=== PATIENT | female | born 1955 | race Caucasian/White ===

== ENCOUNTER → 2024-02-25 08:58 | Outpatient (BNVA) | payer SELFPAY | PROVIDERS: Visit Provider Physician Assistant Medical ==

== ENCOUNTER 2024-02-25 09:56 | Emergency (ER) | payer OTHER, SELFPAY ==
--- NOTE | ~2024-02-25 | XR_ITS ---
EXAMINATION: XR FINGER, LEFT CLINICAL INFORMATION: Crush injury. COMPARISON: None available. TECHNIQUE: 3 views of the left second digit. FINDINGS: Radiopaque marker placed by technologist to indicate the area of concern as indicated by the patient along the distal aspect of the second digit. There is a comminuted, displaced fracture of the distal aspect of the second distal phalanx with adjacent soft tissue swelling. Curvilinear radiodensity in the soft tissues along the ventral aspect of the middle phalanx is concerning for possible foreign body. Moderate degenerative changes in the first carpometacarpal joint. XR/XR finger LT min 2V IMPRESSION: 1. A comminuted, displaced fracture of the distal aspect of the second distal phalanx with adjacent soft tissue swelling. 2. Curvilinear radiodensity in the soft tissues along the ventral aspect of the middle phalanx is concerning for possible foreign body. This study was presented today, February 25, 2024, for interpretation. Stat results provided at this time as requested by referring provider. Electronically signed by: Poornima Jacques MD 02/25/2024 11:56 AM [facility]
[2024-02-25 10:02] VITALS: BP 150/73; PULSE 99; RESP 16; TEMP 36.8; O2SAT 100; BMI 21.1
--- NOTE | 2024-02-25 11:07 | ED_ITS ---
HPI - General Adult General Chief complaint: Wound/Laceration Stated complaint: laceration work related Time Seen by Provider: 02/25/24 10:21 Source: patient Mode of arrival: ambulatory Limitations: no limitations History of Present Illness ED Provider: Jose Rafael Carroll PA-C HPI narrative: 68 yold female with pmh of HTN presents to the ED left index finger injury. 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 Patient states this occurred around 930 this morning and was sent to [facility] who sent her to the ED. patient states up-to-date with tetanus shot. Related Data Previous Rx's ?Medication ?Instructions ?Recorded amoxicillin 875 mg-potassium 1 tab PO Q12H 10 days #20 tabs 02/25/24 clavulanate 125 mg tablet naproxen 500 mg tablet 500 mg PO BID PRN pain #14 tabs 02/25/24 Allergies Allergy/AdvReac Type Severity Reaction Status Date / Time acetaminophen [From Percocet] AdvReac Itching Verified 02/25/24 10:04 hydrochlorothiazide AdvReac Insomnia Verified 02/25/24 10:04 oxycodone [From Percocet] AdvReac Itching Verified 02/25/24 10:04 Review of Systems 2 Review of Systems: left index injury Yes all other systems are reviewed and are negative [facility] Social History Social History Advance Directives: No Advance Directives Information Provided: Yes Do you have a plan to hurt others: No Plan Physical Exam ED Vital Signs: Vital Signs - 24 hr 02/25/24 10:02 02/25/24 13:13 Temperature 98.3 F 98.2 F Pulse Rate 99 91 Respiratory Rate 16 18 Blood Pressure 150/73 H 150/76 H Pulse Oximetry 100 99 Oxygen Delivery Method Room Air Room Air BMI result Body Mass Index 21.1 Const General: cooperative, healthy appearing, comfortable, no acute distress, well developed, alert, awake and Physically active Orientation/consciousness: patient oriented x3 HENMT Head: Yes normal to inspection, Yes No palpable skull fracture present, Yes normocephalic and Yes atraumatic Eyes General: appearance normal, both eyes and all related structures Neck Neck: Yes normal visual inspection, Yes full ROM, Yes no lymphadenopathy, Yes no meningeal signs, Yes trachea midline, Yes supple, No anterior neck swelling and No tender Chest Chest palpation & inspection: normal inspection of the chest and normal palpation of entire chest wall Resp Effort & Inspection: normal respiratory effort and able to speak in complete sentences Auscultation: clear to auscultation bilaterally Cardio Jugular venous distension: no JVD Heart sounds: S1 normal heart sound present and S2 normal heart sound present GI Inspection: Yes normal to inspection Palpation (GI): Soft to palpation, not firm, nontender, no guarding and not rigid General: Yes no CVA tenderness Back/Spine/Pelvis Back: no CVA tenderness and No back tenderness Skin General skin exam: no rashes or lesions noted, elasticity normal and turgor normal Neuro General: patient oriented x3, gait normal, tone normal, moves all extremities, Normal light touch and pain sensation, no meningeal signs, no focal motor deficits, CN's II-XI intact bilaterally and normal sensation to monofilament Extrem Other: Negative for signs of tendon nerve injury. Nail attached to nail bed. Palm aspect skin avulsion. Bleeding controlled. Vascular motor neuro exam of finger and rest of extremity intact. Negative for signs of foreign body in middle phalanx. Psych Appearance: grossly normal, well kempt and not disheveled Medications Administered Discontinued Medications Generic Name Dose Route Start Last Admin Trade Name Malaika PRN Reason Stop Dose Admin Bacitracin 1 appl 02/25/24 12:31 02/25/24 12:43 Bacitracin Oint 0.9 Gm Packet TOPICAL 02/25/24 12:32 1 appl ONCE ONE Administration Protocol Cefazolin Sodium 1 gm 02/25/24 12:23 02/25/24 12:43 Cefazolin Sodium 1 Gm Vial IVPUSH 02/25/24 12:24 1 gm ONCE ONE Administration Medical Decision Making Medical Decision Making MDM Narrative: 68-year-old female with left index injury/crush injury up-to-date with tetanus. Was sent for x-ray. Patient denied any distress. X-ray shows crushed cuff injury on wet read waiting for official read. Finger on wrap cleaned with sterile saline and Betadine iodine. 12:23pm: Xray confirmes communited fracture of finger. pictures of finger and xray was sent orthopedic PA surgeon Joy. Case was discussed with her and she recommends IV antibiotics and just clean crush injury and place in dressing and patient can follow-up with the clinic. Nail attached to nail bed. Palm aspect of finger shows skin avulsion. Presently no laceration repair indicated. Motor neurovascular exam of index finger rest of extremity intact and normal. Patient explained worrisome signs and informed to return to the ED immediately. Differential Diagnosis Differential Diagnoses: The differential diagnosis associated with the presentation includes (Crush injury, fracture, laceration) Admission/Observation Consideration of admission/observation: Escalation of care including admission/observation considered Consult Healthcare Provider Management of the patient was discussed with: Tin Dipper (Orhotpanastacia Siu) Lab Data MDM Lab Attestation statement: I reviewed the patient's lab results. Independent Interpretation I performed an independent interpretation of an: Plain X-Ray Radiology Impression Discussion of test interpretation with radiology: I have reviewed the radiologist's reading. Discharge Plan Discharge Clinical Impression: Crush injury, Avulsion of skin, Finger fracture, left Patient Disposition: Home, Self-Care Instructions: Finger Fracture (ED) Additional Instructions: Dressing and splint should remain on finger until you follow up with Orthopedic Hand Surgeon. You will be discharged with antibiotics to prevent infection. Return to the ED immeidatley for worsening pain, numbness/tingling, redness, fever, chills, bluish/black discloration, or any other concerning symptoms. XR/XR finger LT min 2V IMPRESSION: 1. A comminuted, displaced fracture of the distal aspect of the second distal phalanx with adjacent soft tissue swelling. 2. Curvilinear radiodensity in the soft tissues along the ventral aspect of the middle phalanx is concerning for possible foreign body. This study was presented today, February 25, 2024, for interpretation. Stat results provided at this time as requested by referring provider. Electronically signed by: Poornima Jacques MD 02/25/2024 11:56 AM [facility] Prescriptions: New amoxicillin-pot clavulanate 875-125 mg tablet 1 tab PO Q12H 10 Days Qty: 20 0RF naproxen 500 mg tablet 500 mg PO BID PRN (Reason: pain) Qty: 14 0RF Referrals: [facility] Orth[facility] Surgeons [Provider Group] (Index finger communited fracture.) [facility] [Outside] (Index finger injury) Deloris Wilson MD [Physician] - (Index fracture communited) Stand Alone Forms: Work/School Release Interventions: ED Discharge Assessment Last Done: 02/25/24 13:13 Discharge Date/Time: 02/25/24 13:14 Print Language: Welsh
[2024-02-25] MEDS: Bacitracin Oint 0.9 GM PACKET 1 APPL TOPICAL (12:43)
[2024-02-25] MEDS: ceFAZolin Sodium 1 GM VIAL IVPUSH (12:43)
[2024-02-25 13:13] VITALS: BP 150/76; PULSE 91; RESP 18; TEMP 36.8; O2SAT 99
== END 2024-02-25 13:14 | disposition home or self-care (01) ==
PROVIDERS: Emergency Provider Emergency Medicine; PCP Family Medicine
DX: S62.601A Fracture of unspecified phalanx of left index finger, initial encounter for closed fracture (principal); Y29.XXXA Contact with blunt object, undetermined intent, initial encounter; Y93.89 Activity, other specified; Y92.89 Other specified places as the place of occurrence of the external cause; Y99.0 Civilian activity done for income or pay
CPT/HCPCS: 29130; 73140; 96374; 99282; 99284; J0690

== ENCOUNTER 2024-02-26 13:03 | Outpatient (AMB) | payer OTHER, SELFPAY ==
--- NOTE | 2024-02-26 13:08 | A.OFFVIS_ITS ---
Vital Signs 02/26/24 13:15 Height 5 ft 7 in Weight 135 lb BMI 21.1 Intake Visit Reasons: FC - ED f/u Crush injury, Lt index Finger fx Intake Note: Ansley 68 yr old right hand dominant female presents today for a new patient W/C visit s/p ED visit from DOI 02/25/24 for her left index finger. 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 States while working she accidentally kicked the kick presser and her finger got crushed. Seen at [facility] and then ED. Xrays were taken and finger were cleaned and wrapped due to laceration in finger. Currently states she is experiencing a constant ache in finger, bleeding and numbness is improving. Allergies acetaminophen [From Percocet] Adverse Reaction (Verified 02/26/24 13:21) Itching hydrochlorothiazide Adverse Reaction (Verified 02/26/24 13:21) Insomnia oxycodone [From Percocet] Adverse Reaction (Verified 02/26/24 13:21) Itching HPI HPI FC - ED f/u Crush injury, Lt index Finger fx: Details: Ansley is a 68 year old right hand dominant woman who presents for a left index finger fracture, S/P crush injury, DOI: 02/25/24. 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 She was seen in the ED where this was cleaned and dressed, and she was given Abx and referred here. She complains today of a constant achiness in her finger. She says the bleeding & numbness in her finger has been improving. 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 Review of Systems Const All systems reviewed & are unremarkable except as noted in HPI and below Physical Exam Vital Signs: BMI result Body Mass Index 21.1 Const General: cooperative, healthy appearing and no acute distress Orientation/consciousness: patient oriented x3 HEENT Head: Yes normocephalic and Yes atraumatic Eyes EOM: EOMs intact bilaterally Resp Effort & Inspection: normal respiratory effort and able to speak in complete sentences Cardio Jugular venous distension: no JVD Skin General skin exam: turgor normal Rashes: no rashes Neuro General: patient oriented x3 Extrem Other: Evaluation of Left Upper Extremity: The patient is alert, oriented, and in no acute distress Sensation intact to the pad of the finger proximal to the laceration. The index finger nail plate is displaced from under eponychial fold proximally, and is still attached distally There is an apex dorsal deformity of the distal phalanx. There is some ecchymosis and a hematoma around the distal aspect of the finger She does have an open wound covered by hematoma at the tip of the finger. Full active flexion and extension at the index finger MCP joint. No wounds over the middle phalanx I did not test the PIP joint. The other digits do not appear to be injured. No laceration or other open injury over the middle phalanx. Thus the radiographic foreign body at the radial volar middle phalanx appears to be old. Radiographs: 3 views of the left hand, with attention to the index finger, were reviewed by me today in clinic. They show a comminuted displaced distal phalanx fracture. There is also evidence of a foreign body over the middle phalanx, which appears to be old as she has no evidence of wounds on exam today. Psych Appearance: grossly normal Affect: normal affect Attitude: cooperative Assessment & Plan Assessment & Plan (1) Open fracture of distal phalanx of left index finger: Code(s): S62.631B - Displaced fracture of distal phalanx of left index finger, initial encounter for open fracture Category: Medical (2) Injury of nail bed of finger of left hand: Comment: IF Code(s): S69.92XA - Unspecified injury of left wrist, hand and finger(s), initial encounter Category: Medical Plan Assessment & Plan: 1. Left index finger open distal phalanx fracture, comminuted, displaced 2. Left index finger nail bed injury From a crush injury, DOI: 02/25/24 This is a work-related injury I educated her about this condition I discussed operative and non-operative treatment options The patient would like to proceed with surgery She should continue to take her Abx as instructed The risks and benefits of operative treatment were discussed with the patient and the patient wishes to proceed with surgery. These risks include, but are not limited to risk of damage to blood vessels, nerves, tendons, infection, recurrence, incomplete relief of preoperative symptoms, persistent pain, possible need for further surgery and the risks associated with regional blocks and anesthesia. The plan is to take the patient to the operating room sometime on 02/28/24 for the following procedures: 1. Left index finger I&D of open fracture, under local 2. Left index finger nailbed repair, under local All of the preoperative paperwork including the consent was reviewed today. All the patient's questions were answered. The patient understands that they will be contacted by our dental surgery doctor soon to schedule this procedure She denies Diabetes, blood thinners, asthma, heart, lung, kidney issues Scribed for Deloris Wilson MD by Malcolm Zambrano, certified medical transcriptionist, on 02/26/24 at 1:40 PM, EST. Medications: Discontinued naproxen Discontinued Reason: Patient Completed Course 500 mg PO BID PRN 14 tabs 0RF pain Coding Level of Care Code New Pt Level 4 (82093) Diagnoses Open fracture of distal phalanx of left index finger S62.631B Injury of nail bed of finger of left hand S69.92XA
[2024-02-26 13:15] VITALS: BMI 21.1
== END 2024-02-26 13:52 | disposition home or self-care (01) ==
PROVIDERS: PCP Family Medicine; Visit Provider Orthopaedic Surgery
DX: S62.631B Displaced fracture of distal phalanx of left index finger, initial encounter for open fracture (principal); S69.92XA Unspecified injury of left wrist, hand and finger(s), initial encounter
CPT/HCPCS: 99204

== ENCOUNTER 2024-02-28 10:14 | Day surgery (SDC) | payer OTHER, SELFPAY ==
--- NOTE | 2024-02-28 09:44 | W.PM.OPN ---
Operative Note Operative Note Date of Service: 02/28/24 Narrative: Operative Note Narrative: Preop diagnosis: 1. Left index finger open distal phalanx fracture 2. Left index finger nail bed injury Postop diagnosis: Same Procedure: 1. Left index finger I&D of open fracture 2. Left index finger removal of nail plate 3. Left index finger repair of nail bed Surgeon: Deloris Wilson MD Electrical Repairer: Erick BASHIR Anesthesia: Digital block Findings: Open comminuted distal phalanx fracture from a crush injury. Injury to the nail bed in the central aspect of the nail bed, also on the radial aspect of the nail bed. Both of these wounds were open to the fracture. There was some skin loss on the radial tip of the finger, and this also communicated with the fracture. Overall the wound was clean other than for hematoma and dried blood. The skin distal to the D IP flexion crease was somewhat dusky, but this could be more secondary to hematoma than vascular compromise of the skin in this area. Implants: None Tourniquet time: 0 minutes EBL: 5.0 ml Specimen: None Drains: None Complications: None Disposition: Brought to the recovery room in stable condition Plan: Follow-up next week for wound check Anticipate suture removal in 3 weeks for those securing the nail. Continue antibiotics until finished Indications: The patient is 68 years old with a crush injury to the tip of the left index finger resulting in a nail bed injury and open distal phalanx fracture with comminution . The risks and benefits of operative treatment, including but not limited to risk of damage to blood vessels, nerves, tendons, infection, recurrence, persistent pain or numbness, incomplete resolution of preoperative symptoms, or need for further surgery were discussed with the patient and they wished to proceed with surgery. Procedure: Once consent was obtained a digital block was performed in preop hold. The patient was brought back to the operating suite and placed in the operating table in a supine position. The limb was prepped and draped in a standard surgical fashion. Once assured we had a good block I used a [place] elevator to elevate the nail plate from the underlying nail bed. The nail plate was then cleaned off with a [place] elevator and placed in some Betadine. A finger tourniquet was applied to the base of the index finger for fewer than 30 minutes. The patient sustained a nail bed injury in the central aspect of the nail bed and then along the radial edge of the nail bed. Both of these wounds communicated with the open fracture. The skin also appeared to rupture and or sustain skin loss from the radial tip of the finger. This wound also communicated with the open fracture. The wounds were debrided of nonviable tissue using tenotomy and iris scissors. An I&D was also performed on the open distal phalanx fracture. A curette was also used to debride some of the bone within each of these wounds. I used a 10 mL syringe with an Angiocath to copiously irrigate the fracture fragments at the tip of the distal phalanx. Once satisfied with our I&D of this open fracture the distal phalanx fracture was reduced from its volarly translated position. The skin edges were reapproximated with some 4 0 Prolene suture material. The nail bed wasrepaired using some 6 0 gut suture. I then placed the proximal end of the nail plate beneath the eponychial fold so that the nail plate could act as a splint for this distal phalanx fracture. The nail plate was then secured in place using some 4-0 Prolene suture. This also help to hold the fracture in in improved position. At this point the finger tourniquet was removed and hemostasis obtained with a brief period of local pressure. A sterile dressing was then applied. The patient appears to have tolerated the procedure well and with no complications. All digits were well vascularized conclusion of the case.
[2024-02-28 10:06] VITALS: BMI 21.6
[2024-02-28 10:17] VITALS: BP 134/82; PULSE 86; RESP 20; TEMP 36.1; O2SAT 98
--- NOTE | 2024-02-28 11:13 | MHC.SHP ---
Pre-Procedural Eval Section A - 24 Hr Update-Section A only Date of Service: 02/28/24 The patient is an INPATIENT: No Changes since office visit: No Cold of Flu in the past 2 weeks, No New Medical Problems, No Changes in Medication and No Patient answered all questions The patient has been examined within 24 hours of the surgical procedure. The History & Physical has been completed within 30 days and I have reviewed it.: Yes Section B - Complete if H&P > 30 days Chief Complaint: Displaced fracture of distal phalanx of left index Allergies: Allergies Allergy/AdvReac Type Severity Reaction Status Date / Time acetaminophen [From Percocet] AdvReac Itching Verified 02/26/24 13:21 hydrochlorothiazide AdvReac Insomnia Verified 02/26/24 13:21 oxycodone [From Percocet] AdvReac Itching Verified 02/26/24 13:21 Plan I have reviewed the history and physical and performed a pertinent physical examination on my patient. No changes have occurred unless specified. Time Spent With Patient Time: Total time managing care of this patient today ____ minutes.
[2024-02-28 13:07] VITALS: BP 135/65; PULSE 71; RESP 18
== END 2024-02-28 13:25 | disposition home or self-care (01) ==
PROVIDERS: PCP Family Medicine; Visit Provider Orthopaedic Surgery
PROC: (CPT 11012; principal; 2024-02-28 11:00)
DX: S62.631B Displaced fracture of distal phalanx of left index finger, initial encounter for open fracture (principal); S69.82XA Other specified injuries of left wrist, hand and finger(s), initial encounter; W31.9XXA Contact with unspecified machinery, initial encounter; Y93.89 Activity, other specified; Y92.63 Factory as the place of occurrence of the external cause; Y99.0 Civilian activity done for income or pay; Z88.8 Allergy status to other drugs, medicaments and biological substances; Z88.5 Allergy status to narcotic agent
CPT/HCPCS: 11012; 11760; 11730; J0171; J2003

== ENCOUNTER → 2024-02-28 10:14 | Outpatient (BNV) | payer OTHER, SELFPAY | PROVIDERS: PCP Family Medicine; Visit Provider Orthopaedic Surgery | DX: S67.191A Crushing injury of left index finger, initial encounter (principal) | CPT/HCPCS: 11012; 11760 ==

== ENCOUNTER 2024-03-07 10:09 | Outpatient (AMB) | payer OTHER, SELFPAY ==
--- NOTE | 2024-03-07 10:22 | A.OFFVIS_ITS ---
Intake Visit Reasons: PO 1 week LT IF I&D/nail bed repair 02/28/24 AR Intake Note: Ansley is a 68 year old right hand dominant female who presents today post operatively and for a wound check s/p left index finger I&D of open fracture, left index finger removal of nail plate and left index finger repair of nail bed DOS: 02/28/24 w/ Dr Wilson Allergies acetaminophen [From Percocet] Adverse Reaction (Verified 03/07/24 10:30) Itching hydrochlorothiazide Adverse Reaction (Verified 03/07/24 10:30) Insomnia oxycodone [From Percocet] Adverse Reaction (Verified 03/07/24 10:30) Itching HPI HPI PO 1 week LT IF I&D/nail bed repair 02/28/24 AR: Details: Patient is a 68-year-old female who presents for postoperative evaluation status post left index finger I&D and nail bed repair, DOS 02/1924. Today, the patient reports that she does still experience some numbness in the distal aspect of the left index finger, but has minimal pain at baseline. No other acute complaints or concerns at this time. 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 Neuro: Diminished sensation of the tips of index finger of the left hand at this time Normal sensation of the tips of all other digits Vascular: Cap refill brisk Pain: Minimal pain to palpation tip of the left index finger No other pain ROM: Patient is able make a closed fist and extend all digits of the left fully Skin: Surgical incision noted on the tip of the left index finger General: No ecchymosis, erythema, or evidence of infection. Psych: Appears grossly normal Affect normal Attitude cooperative Assessment & Plan Assessment & Plan (1) Injury of nail bed of finger of left hand: Comment: IF Code(s): S69.92XA - Unspecified injury of left wrist, hand and finger(s), initial encounter Category: Medical (2) Open fracture of distal phalanx of left index finger: Code(s): S62.631B - Displaced fracture of distal phalanx of left index finger, initial encounter for open fracture Category: Medical Plan 1 injury of nail bed and open fracture of left index finger status post I and D DOS 02/28/24 Patient appears to be recovering well postoperatively Patient is educated about the typical recovery course At this time, patient is informed that she is showing no signs of infection, and then she should just finish her current course of antibiotics Patient will follow-up next week for suture removal of the sutures that do not involve the nail, and sutures then involve the nail we removed in 2 weeks Patient was advised that if she sees any signs or symptoms of infection, she should call our office or present to the emergency department if it was over the weekend Patient was amenable to this plan Patient will follow-up in 1 week for suture removal, sooner with any acute concerns Coding Level of Care Code Global (85773) Diagnoses Injury of nail bed of finger of left hand S69.92XA Open fracture of distal phalanx of left index finger S62.631B
== END 2024-03-07 11:07 | disposition home or self-care (01) ==
PROVIDERS: PCP Family Medicine
DX: S69.92XA Unspecified injury of left wrist, hand and finger(s), initial encounter (principal); S62.631B Displaced fracture of distal phalanx of left index finger, initial encounter for open fracture
CPT/HCPCS: 99024

== ENCOUNTER → 2024-03-07 10:09 | Outpatient (BNVA) | payer OTHER, SELFPAY | PROVIDERS: PCP Family Medicine | DX: S62.631B Displaced fracture of distal phalanx of left index finger, initial encounter for open fracture (principal); S67.191A Crushing injury of left index finger, initial encounter; W31.9XXA Contact with unspecified machinery, initial encounter; Y93.89 Activity, other specified; Y92.69 Other specified industrial and construction area as the place of occurrence of the external cause; Y99.0 Civilian activity done for income or pay | CPT/HCPCS: 99212 ==

== ENCOUNTER 2024-03-13 08:15 | Outpatient (REF) | payer OTHER, SELFPAY ==
--- NOTE | ~2024-03-13 | XR_ITS ---
EXAMINATION: XR HAND 3 OR MORE VIEWS LEFT HISTORY: M79.642 - Pain in left hand COMPARISON: Comparison is made with the prior examination dated 02/25/2024. FINDINGS: Three views of the left hand are submitted. Osseous mineralization is normal. Again seen is a comminuted fracture of the tuft of the index finger. Position and alignment of the fracture fragments is unchanged. The joint spaces are preserved. Again seen is a tiny metallic foreign body in the volar soft tissues at the level of the middle phalanx. XR/XR hand LT min 3V IMPRESSION: Comminuted fracture of the tuft of the index finger without change. Tiny metallic foreign body in the volar soft tissues at the level of the middle phalanx without change. Electronically signed by: Deandre Hinds MD 03/19/2024 08:15 AM KIMANI
== END 2024-03-13 08:16 | disposition home or self-care (01) ==
LOC: HO.HOSX 08:15
DX: M79.642 Pain in left hand (principal); S69.92XA Unspecified injury of left wrist, hand and finger(s), initial encounter; S62.631B Displaced fracture of distal phalanx of left index finger, initial encounter for open fracture
CPT/HCPCS: 73130; 99212

== ENCOUNTER 2024-03-13 08:38 | Outpatient (AMB) | payer OTHER, SELFPAY ==
--- NOTE | 2024-03-13 08:54 | MHC.OFFVIS ---
Intake Visit Reasons: PO LT IF I&D/nail bed repair 02/28/24 AR Intake Note: Ansley is a 68 year old right hand dominant female who presents today post operatively s/p left index finger I&D of open fracture, left index finger removal of nail plate and left index finger repair of nail bed DOS: 02/28/24 w/ Dr Wilson. Patient reports she has intermittent random pain and when she raises her hand up some times this helps relieve the pain she is having. She expresses her symptoms exacerbate when she hangs her hand down. She states she is having numbness and tingling in this finger. She has been doing daily dressing changes. Denies any drainage or pus. Allergies acetaminophen [From Percocet] Adverse Reaction (Verified 03/13/24 08:58) Itching hydrochlorothiazide Adverse Reaction (Verified 03/13/24 08:58) Insomnia oxycodone [From Percocet] Adverse Reaction (Verified 03/13/24 08:58) Itching HPI HPI PO LT IF I&D/nail bed repair 02/28/24 AR: Details: Patient is a 68-year-old female who presents for postoperative evaluation status post left index finger I&D and nail bed repair, DOS 02/28/24. Today, the patient reports that she is feeling better, and she feels that her finger is healing well. Patient states that she does have some concerns that the ?brain tissue? that she sees growing from her finger could cause an impediment to wound healing. Patient states that she does have normal sensation in the left index finger today, but does sometimes experience some numbness in that finger. Patient states that the range of motion of her left index finger has improved since previous visit. 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 Neuro: Normal sensation of the tip of index finger of the left hand at this time Normal sensation of the tips of all other digits Vascular: Cap refill brisk Pain: Minimal pain to palpation tip of the left index finger No other pain ROM: Patient is able make a closed fist and extend all digits of the left fully Skin: Surgical incision noted on the tip of the left index finger No discharge at this time General: No ecchymosis, erythema, or evidence of infection. Initial appearance of the distal aspect of the left index finger is dusky, however upon further examination there does appear to be some cap refill under the superficial layer of widened skin Psych: Appears grossly normal Affect normal Attitude cooperative Results Reviewed Results Reviewed: X-rays obtained in the office today and independently reviewed by me, Erick Fall PA-C, demonstrate distal tuft fracture of the left index finger with some very early evidence of interval bony healing. Assessment & Plan Assessment & Plan (1) Injury of nail bed of finger of left hand: Comment: IF Code(s): S69.92XA - Unspecified injury of left wrist, hand and finger(s), initial encounter Category: Medical (2) Open fracture of distal phalanx of left index finger: Code(s): S62.631B - Displaced fracture of distal phalanx of left index finger, initial encounter for open fracture Category: Medical Plan 1 injury of nail bed and open fracture of left index finger status post I and D DOS 02/28/24 Patient appears to be recovering well postoperatively Patient is educated about the typical recovery course At this time, patient is informed that she is showing no signs of infection, and then she should just finish her current course of antibiotics Patient will follow-up next week for removal of sutures involving the nail bed Patient was advised that if she sees any signs or symptoms of infection, she should call our office or present to the emergency department if it was over the weekend Patient was amenable to this plan Patient will follow-up in 1 week for suture removal, sooner with any acute concerns Orders: Orders XR hand LT min 3V Today M79.642 - Pain in left hand Coding Level of Care Code Global (49861) Diagnoses Injury of nail bed of finger of left hand S69.92XA Open fracture of distal phalanx of left index finger S62.631B
== END 2024-03-13 09:26 | disposition home or self-care (01) ==
PROVIDERS: PCP Family Medicine
DX: S69.92XA Unspecified injury of left wrist, hand and finger(s), initial encounter (principal); S62.631B Displaced fracture of distal phalanx of left index finger, initial encounter for open fracture
CPT/HCPCS: 99024

== ENCOUNTER 2024-03-19 09:13 | Outpatient (AMB) | payer OTHER, SELFPAY ==
--- NOTE | 2024-03-19 09:36 | MHC.OFFVIS ---
Intake Visit Reasons: PO 3 week LT IF I&D/nail bed repair 02/28/24 AR Intake Note: Ansley is a 68 year old right hand dominant female who presents today post operatively for a wound check s/p left index finger I&D of open fracture, left index finger removal of nail plate and left index finger repair of nail bed DOS: 02/28/24 w/ Dr Wilson. At her last visit some of her sutures were removed except the ones involving the nail bed. Her pain is manageable , worse in the cold weather. She has no concerns at this time. Allergies acetaminophen [From Percocet] Adverse Reaction (Verified 03/13/24 08:58) Itching hydrochlorothiazide Adverse Reaction (Verified 03/13/24 08:58) Insomnia oxycodone [From Percocet] Adverse Reaction (Verified 03/13/24 08:58) Itching HPI HPI PO 3 week LT IF I&D/nail bed repair 02/28/24 AR: Details: Ansley is a 68 year old right hand dominant female who presents today post operatively for a wound check s/p left index finger I&D of open fracture, left index finger removal of nail plate and left index finger repair of nail bed DOS: 02/28/24 w/ Dr Wilson. At her last visit some of her sutures were removed except the ones involving the nail bed. Her pain is manageable , worse in the cold weather. She has no concerns at this time. 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 Neuro: Normal sensation of the tip of index finger of the left hand at this time Normal sensation of the tips of all other digits Vascular: Cap refill brisk Pain: No pain to palpation tip of the left index finger No other pain ROM: Patient is able make a closed fist and extend all digits of the left fully Skin: Surgical site noted on the tip of the left index finger No discharge at this time General: No ecchymosis, erythema, or evidence of infection. There is good capillary refill to the tip of the left index finger Psych: Appears grossly normal Affect normal Attitude cooperative Assessment & Plan Assessment & Plan (1) Injury of nail bed of finger of left hand: Comment: IF Code(s): S69.92XA - Unspecified injury of left wrist, hand and finger(s), initial encounter Category: Medical (2) Open fracture of distal phalanx of left index finger: Code(s): S62.631B - Displaced fracture of distal phalanx of left index finger, initial encounter for open fracture Category: Medical Plan 1 injury of nail bed and open fracture of left index finger status post I and D DOS 02/28/24 Patient appears to be recovering well postoperatively Patient is educated about the typical recovery course At this time, patient is informed that she is showing no signs of infection, and then she should just finish her current course of antibiotics Remaining sutures removed in the office today Patient was advised that if she sees any signs or symptoms of infection, she should call our office or present to the emergency department if it was over the weekend Patient was amenable to this plan Patient will follow-up in 2 weeks for reassessment, sooner with any acute concerns Coding Level of Care Code Global (61044) Diagnoses Injury of nail bed of finger of left hand S69.92XA Open fracture of distal phalanx of left index finger S62.631B
== END 2024-03-19 09:59 | disposition home or self-care (01) ==
PROVIDERS: PCP Family Medicine
DX: S69.92XA Unspecified injury of left wrist, hand and finger(s), initial encounter (principal); S62.631B Displaced fracture of distal phalanx of left index finger, initial encounter for open fracture
CPT/HCPCS: 99024

== ENCOUNTER → 2024-03-19 09:13 | Outpatient (BNVA) | payer OTHER, SELFPAY | PROVIDERS: PCP Family Medicine | DX: S62.631D Displaced fracture of distal phalanx of left index finger, subsequent encounter for fracture with routine healing (principal); S69.92XD Unspecified injury of left wrist, hand and finger(s), subsequent encounter | CPT/HCPCS: 99212 ==

== ENCOUNTER 2024-04-02 08:42 | Outpatient (REF) | payer OTHER, SELFPAY ==
--- NOTE | ~2024-04-02 | XR_ITS ---
CLINICAL HISTORY: M79.642 - Pain in left hand 3 view left hand Comparison: None Findings: Comminuted fracture of the tuft of the 2nd distal phalanx with mild displacement of fragments. Overlying soft tissue deformity. No dislocation. No significant arthritic change. No erosions. 2 mm linear foreign body within the soft tissues of the 2nd finger palmar and radial to the diaphysis of the middle phalanx. IMPRESSION: 1. Comminuted fracture of the 2nd distal phalanx. 2. There is a foreign body within the soft tissues of the 2nd finger. This document has been electronically signed by: Venita Whitley MD on 04/03/2024 15:17:41
--- OUTSIDE RECORDS SUMMARY | 2024-04-02 08:58 | XMS_ITS | Encounter Summary ---
Author Organization [facility] Address [address] [place] [address] Care Team Providers Care Legal Advisor Name Role Phone Carlitos Conner MD Primary Care Pr ovider Reason for Visit * Reason Comments Sore Throat Cough Encounter Details Date Type Department Care Team (Late st Contact Info) Description 03/17/2024 9:00 AM EST Office Visit Walk-In Clinic [facility] [address] [place] [id number] William Castle PA [address] [place] [id number] Sore throat (Primary Dx) Social History Tobacco Use Types Packs/Day Years Used Date Smoking Tobacco: Former Cigarettes 1 24 0 03/12/1976 - 03/12/2000 Smokeless Tobacco: Never Alcohol Use Standard Drinks/Week Comments Yes 0 (1 standard drink = 0.6 oz pur e alcohol) Sex and Gender Information Value Date Recorded Sex Assigned at Not on file Gender Identity Not on file Sexual Orientation Not on file Job Start Date Occupation Industry Not on file Not on file Not on file documented as of this encounter Last Filed Vital Signs Vital Sign Reading Time Taken Comments Blood Pressure 133/59 03/17/2024 9:06 AM EST Pulse 82 03/17/2024 9:06 AM EST Temperature 36.6 ??C (97.9 ??F) 03/17/2024 9:06 AM ES T Respiratory Rate - - Oxygen Saturation 99% 03/17/2024 9:06 AM EST Inhaled Oxygen Concentration - - Weight - - Height - - Body Mass Index - - documented in this encounter Ordered Prescriptions Prescription Sig Dispensed Refills Start Date End Da te diphenhydrAMINE 12.5 mg/5 mL elixir 50 mg, aluminum-magnesium hydroxide-simethicone 400-400-40 mg/5 mL suspension 20 mL, lidocaine 2 % solution 20 mLIndications:Sore throat Swish and spit 5 mL every 4 (four) hours if needed for mucositis. 140 each 03/17/2024 documented in this encounter Progress Notes * KRYSTEN James - 03/17/2024 9:00 AM EST CHIEF COMPLAINT: Sore Throat and Cough had concerns including Sore Throat and Cough. IDENTIFIER: Ansley Jackson is a 68 y.o. old female. [address] [facility] HPI: Ansley Jackson presents to urgent care for evaluation of sore throat. This been present for a week or so. Patient describes a tickle and discomfort in the throat. This is causing occasional cough PHYSICAL EXAM: Vitals: 03/17/24 0906 BP: 133/59 Pulse: 82 Temp: 36.6 ??C (97.9 ??F) TempSrc: Temporal SpO2: 99% APPEARANCE: Alert and in no acute distress HEENT: The oropharynx is very mild posterior erythema. Tonsils are absent. No visible exudate. LABS/IMAGING: Office Visit on 03/17/2024 Component Date Value Ref Range Status COVID-19/SARS-COV-2 Rapid POC 03/17/2024 Negative Negative Final Internal Control Pass 03/17/2024 Yes Yes Final POC Strep A ID Now 03/17/2024 Negative Negative Final Internal Control Pass 03/17/2024 Yes Yes Final No images are attached to the encounter. ROS: Review of Systems Constitutional: Negative. HENT: Positive for sore throat. Eyes: Negative. Respiratory: Negative. Cardiovascular: Negative. Gastrointestinal: Negative. Endocrine: Negative. Genitourinary: Negative. Musculoskeletal: Negative. Skin: Negative. Breast: negative. PROBLEMS: Ansley was seen today for sore throat and cough. Diagnoses and all orders for this visit: 1. Sore throat - Poc Rapid [id number], MOLECULAR - POC RAPID STREP A, Molecular Will treat with Magic mouthwash. No evidence of colonization of Streptococcus. No other evidence ofbacterial infection. 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 06/14/2023 Prediabetes 04/06/2023 Schatzki's ring 05/19/2022 Chronic sinusitis 04/01/2020 Gastroesophageal reflux disease 07/04/2018 Anxiety and depression 06/23/2015 Colonic polyp 04/14/2015 Palpitations 03/08/2015 MEYERS (dyspnea on exertion) 07/16/2014 Lung nodules 07/03/2012 Compound nevus 06/03/2012 Multinodular goiter 03/26/2012 Hypertension 03/28/2010 Past Surgical History: Procedure Laterality Date BREAST BIOPSY PROCEDURE: BX BREAST; PERC NEEDLE CORE W/IMAG GUID; COMMENT: BX 2011 RT SIDE NEG SECTION PROCEDURE: HISTORICAL DELIVERY; COMMENT: x3 COLONOSCOPY 04/06/2015 PROCEDURE: HISTORICAL COLONOSCOPY; COMMENT: adenoma; repeat in 3 yrs ESOPHAGOGASTRODUODENOSCOPY 04/06/2015 PROCEDURE: RI ESOPHAGOGASTRODUODENOSCOPY TRANSORAL DIAGNOSTIC; COMMENT: normal FINE NEEDLE ASPIRATION Left PROCEDURE: FINE NDLE ASPRTN W/IMAGING GUIDANCE; COMMENT: 2015 cyst asp. OOPHORECTOMY PROCEDURE: RI OOPHORECTOMY PARTIAL/TOTAL UNI/BI; COMMENT: LSO OTHER SURGICAL HISTORY 08/22/2023 PROCEDURE: RI LAPS RPR PARAESPHGL HRNA INCL FUNDPLSTY W/MESH ROBOTIC ASSISTED HYSTERECTOMY 08/12/2013 PROCEDURE: HISTORICAL ROBOTIC HYSTERECTOMY WITH OR WITHOUT BSO; COMMENT: RSO TONSILLECTOMY ADENOIDECTOMY, BILATERAL MYRINGOTOMY AND TUBES PROCEDURE: RI TONSILLECTOMY & ADENOIDECTOMY <AGE 14 TUBAL LIGATION PROCEDURE: HISTORICAL TUBAL LIGATION WISDOM TOOTH EXTRACTION PROCEDURE: HISTORICAL WISDOM TEETH EXTRACTION SOCIAL HISTORY: Social History Tobacco Use Smoking status: Former Current packs/day: 0.00 Average packs/day: 1 pack/day for 24.0 years (24.0 ttl pk-yrs) Types: Cigarettes Start date: 03/12/1976 Quit date: 03/12/2000 Years since quittin.0 Smokeless tobacco: Never Substance Use Topics Alcohol use: Yes FAMILY HISTORY: Family History Problem Relation Name Age of Onset Colon cancer Mother Thyroid disease Mother Heart attack Father Rhythm disturbance Other (Other: Skin Cancer) Father Other (Other: Skin Cancer) Sister basal cell, face Other (Other: Skin Cancer) Brother Basal cell, neck Hypertension Brother Breast cancer Neg Hx MEDICATIONS DISCONTINUED/REORDERED: There are no discontinued medications. ACTIVE MEDICATIONS: No outpatient medications have been marked as taking for the 03/17/24 encounter (Office Visit) with KRYSTEN James. ALLERGIES: Allergies Allergen Reactions Chlorthalidone Leg cramping Hydrochlorothiazide Other Palpitations & Anxiety Lisinopril Dry cough Oxycodone-Aspirin Itching The details of the visit were reviewed with the patient. Pertinent history, and objective findings were reviewed, along with the diagnoses: Ansley Jackson acknowledges understanding of the above plan and agrees to follow recommendations and/or take medications as prescribed. This visit was performed at an urgent care facility. The patient should follow up with their PCP orthe relevant specialist(s) KRYSTEN James documented in this encounter Plan of Treatment Upcoming Encounters Date Type Department Care Team (Late st Contact Info) Description 04/15/2024 4:30 PM EST Office Visit Adult Medicine [address] [id number] Lucie Montanez PA [address] [place] [phone] documented as of this encounter Procedures Procedure Name Priority Date/Time Associated Diagnosis Comments POC RAPID STREP A, MOLECULAR Routine 03/17/2024 9:44 AM EST Sore throat POC RAPID [id number], MOLECULAR Routine 03/17/2024 9:44 AM EST Sore throat documented in this encounter Results * POC RAPID STREP A, Molecular (03/17/2024 9:44 AM EST) POC Strep A ID Now Negative Negative Internal Control Pass Yes Yes Swab Structure of anterior portion of neck / Unknown 03/17/2024 9:44 AM EST William BASHIR POINT OF CARE TEST E NTER/EDIT ORDERABLES * Poc Rapid [id number], MOLECULAR (03/17/2024 9:44 AM EST) COVID-19/SARS- COV-2 Rapid POC Negative Negative Internal Control Pass Yes Yes Swab Nasopharyngeal structure / Unknown 03/17/2024 9:44 AM EST William BASHIR POINT OF CARE TEST E NTER/EDIT ORDERABLES documented in this encounter Visit Diagnoses Diagnosis Sore throat- Primary Acute pharyngitis documented in this encounter Care Teams Legal Advisor Relationship Specialty Start Date End Date Carlitos Conner MD [address] [place] [id number] PCP - General 05/01/22 documented as of this encounter
--- OUTSIDE RECORDS SUMMARY | 2024-04-02 08:58 | XMS_ITS | Clinical Summary ---
Author Organization [address] [place] [address] [place] [phone] Phone Care Team Providers Care Electronic Integrated Systems Mechanic Name Role Phone Carlitos Conner MD Primary Care Pr ovider Allergies Active Allergy Reactions Criticality Noted Date Comments Chlorthalidone 01/10/2019 Leg cramping Hydrochlorothiazide Other 02/13/2012 Palpitations & Anxiety Lisinopril 04/02/2019 Dry cough Oxycodone-Aspirin Itching 04/23/2006 Medications Medication Sig Dispensed Refills Start Date End Date Status pantoprazole (PROTONIX) 20 mg EC tablet TAKE ONE TABLET BY MOUTH TWICE A DAY BEFORE MEALS ON EMPTY STOMACH WAIT 30 MINUTES THEN EAT TO ACTIVATE MEDICATION 12/17/2023 Active simethicone (MYLICON) 125 mg chewable tablet Chew 1 tablet (125 mg total) every 6 (six) hours if needed for flatulence. 12/04/2023 Active losartan (COZAAR) 25 mg tablet Take 1 tablet (25 mg total) by mouth 1 (one) time each day. 11/28/2023 Active amLODIPine (NORVASC) 10 mg tablet Take 1 tablet (10 mg total) by mouth 1 (one) time each day. 11/28/2023 Active bisacodyL (DULCOLAX) 5 mg EC tablet Take 2 tabs by mouth right before beginning bowel prep. Follow instructions given by office for timing. 10/31/2023 Active famotidine (PEPCID) 20 mg tablet Take 1 tablet (20 mg total) by mouth 2 (two) times a day if needed for heartburn. 05/17/2023 Active fluticasone propionate (FLONASE) 50 mcg/actuation nasal spray Administer 2 sprays into each nostril 1 (one) time each day. 05/19/2022 Active DULoxetine (CYMBALTA) [address] capsule TAKE ONE CAPSULE BY MOUTH EVERY DAY 90 capsule 1 02/28/2024 Active traZODone (DESYREL) 50 mg tablet Take 1 tablet (50 mg total) by mouth at bedtime. 90 tablet 1 02/28/2024 Active diphenhydrAMINE 12.5 mg/5 mL elixir 50 mg, aluminum-magnesium hydroxide-simethic one 400-400-40 mg/5 mL suspension 20 mL, lidocaine 2 % solution 20 mLIndications:Sore throat Swish and spit 5 mL every 4 (four) hours if needed for mucositis. 140 each 03/17/2024 Active Active Problems Problem Noted Date Diagnosed Date Dysphagia 02/11/2024 Multiple thyroid nodules 02/11/2024 Osteopenia 06/20/2023 Paraesophageal hernia with obstruction but no ga ngrene 06/14/2023 Overview (02/11/2024): s/p Da Francia/laparoscopic paraesophageal hernia repair with mesh and gastropexy on 08/22/2023. Last Assessment & Plan: 68-year-old female who on 08/22/2023 underwent a da Francia laparoscopic paraesophageal hernia repair with mesh and gastropexy at [facility] by Dr.Laki Walters. She has been tolerating a soft mechanical diet well with no concerning symptoms such as GERD, regurgitation, nausea, vomiting and has been tolerating swallowing her p.o. medications. Her most recent barium swallow study which was performed today prior to visit shows no evidence of extravasation or leakage with contrast passing readily from esophagus to stomach. Will advance to a regular diet moving forward. I did instruct her to continue to abstain from carbonated beverages to help avoid recurrence of her hernia in the future. Advised to continue to abstain from lifting anything greater than 10 pounds for an additional 2 weeks and to follow-up with the thoracic surgery department moving forward on a as needed basis and to contact us should she have any questions or concerns in the future. Prediabetes 04/06/2023 Schatzki's ring 05/19/2022 Overview (02/11/2024): Seen on EGD in April 2022. Dilated. 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 Multinodular goiter 03/26/2012 Overview (02/11/2024): FNA 05/22 -RL nodule 'atypical' rpt FNA 10/22 Benign, 01/25 benign results Hypertension 03/28/2010 Encounters Date Type Department Care Team Description 03/17/2024 9:00 AM EST Office Visit [facility] [place] [address] [place] [address] William Castle PA Sore throat (Primary Dx) 01/29/2024 Telephone Gastroenterology - [place] [address] [place] [address] Jet Mcclendon PA from Last 3 Months Immunizations Name Administration Dates Next Due Influenza Quadravalent, MDCK , 0.5ml, preservative free (Flucelvax) 6mo and older 01/03/2019 Influenza trivalent, 0.5mL, preservative free (Fluarix; FluLaval; Fluzone) ages 6mo and older (Afluria) 3 years and older 12/14/2019 Moderna SARS-CoV-2 COVID-19, mRNA, LNP-S, preservative free 02/15/2021 Pneumococcal conjugate 20 va lent (Prevnar 20, PCV 20) 2mo and older 04/06/2023 Pneumococcal polysaccharide 23 valent (Pneumovax 23) 2yo and older 06/05/2013 Td Tetanus diptheria (Tdvax) 7yo and older 10/29 Tdap Tetanus diptheria acell ular pertussis (Boostrix; Adacel) 7yo and older 10/05/2022,06/25/2012 Surgical History Surgery Date Site/Laterality Comments TUBAL LIGATION PROCEDURE: HISTORICAL TUBAL LIGATION OOPHORECTOMY PROCEDURE: PA OOPHORECTOMY PARTIAL/TOTAL UNI/BI; COMMENT: LSO SECTION PROCEDURE: HISTORICAL DELIVERY; COMMENT: x3 ROBOTIC ASSISTED HYSTERECTOMY 08/13/19 14 PROCEDURE: HISTORICAL ROBOTIC HYSTERECTOMY WITH OR WITHOUT BSO; COMMENT: RSO COLONOSCOPY 04/06/19 16 PROCEDURE: HISTORICAL COLONOSCOPY; COMMENT: adenoma; repeat in 3 yrs ESOPHAGOGASTRODUODENOSCOPY 04/06/19 16 PROCEDURE: PA ESOPHAGOGASTRODUODENOSCOPY TRANSORAL DIAGNOSTIC; COMMENT: normal BREAST BIOPSY PROCEDURE: BX BREAST; PERC NEEDLE CORE W/IMAG GUID; COMMENT: BX 2011 RT SIDE NEG FINE NEEDLE ASPIRATION Left PROCEDURE: FINE NDLE ASPRTN W/IMAGING GUIDANCE; COMMENT: 2015 cyst asp. WISDOM TOOTH EXTRACTION PROCEDURE: HISTORICAL WISDOM TEETH EXTRACTION TONSILLECTOMY ADENOIDECTOMY, BILATERAL MYRINGOTOMY AND TUBES PROCEDURE: PA TONSILLECTOMY & ADENOIDECTOMY <AGE 12 OTHER SURGICAL HISTORY 08/22/19 24 PROCEDURE: PA LAPS RPR PARAESPHGL HRNA INCL FUNDPLSTY W/MESH Medical History Medical History Date Comments Menorrhagia 05/14/2007 DX:Menorrhagia Sinus congestion 05/14/2007 DX:Sinus conges tion Unspecified essential hypertension 03/28/2010 DX:Unspecified essential hypertension Basal cell carcinoma 08/22/2010 DX:Basal ce ll carcinoma Goiter 02/13/2012 DX:Goiter Multinodular goiter 03/26/2012 DX:Multinodu lar goiter Personal history of other ma lignant neoplasm of skin 06/03/2012 DX:Personal history of other malignant neoplasm of skin Compound 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/03/2012 DX:Compound nevu s Emphysema/COPD (CMS/HCC) 07/03/2012 DX:Emph ysema/COPD (HCC) History of basal cell carcinoma 08/22/2010 DX:History of basal cell carcinoma; COMMENT: Right distal tibia 05/20 Dysphagia DX:Dysphagia Multiple thyroid nodules DX:Mult iple thyroid nodules Esophageal reflux DX:Esophageal reflux Anxiety state DX:Anxiety state Depressive disorder DX:Depressiv e disorder Hiatal hernia DX:Hiatal hernia Schatzki's ring of distal esophagus DX:Schatzki's ring of distal esophagus Esophageal dysmotility DX:Esopha geal dysmotility Esophageal dysmotility DX:Esopha geal dysmotility Thyroid disease 06/14/2023 DX:Thyroid disea se COVID-19 virus infection 03/26/2020 DX:COVI D-19 virus infection Family History Medical History Relation Name Comments Other: Skin Cancer Brother 1 Basal guera l, neck Hypertension Brother 2 Heart attack Father Rhythm disturba nce Other: Skin Cancer Father Colon cancer Mother Thyroid disease Mother Other: Skin Cancer Sister basal guera l, face Breast cancer Neg Hx Relation Name Status Comments Brother 1 Brother 2 Father Mother (Age 82) 01/16 OF C GLENN [place] Sister Social History Tobacco Use Types Packs/Day Years [...] file Not on file Not on file Obstetrics History Last Filed Vital Signs Vital Sign Reading Time Taken Comments Blood Pressure 133/59 03/17/2024 9:06 AM EST Pulse 82 03/17/2024 9:06 AM EST Temperature 36.6 ??C (97.9 ??F) 03/17/2024 9:06 AM ES T Respiratory Rate - - Oxygen Saturation 99% 03/17/2024 9:06 AM EST Inhaled Oxygen Concentration - - Weight 64.9 kg (143 lb) 10/10/2023 3:41 PM EDT Height 170.2 cm (5' 7 ) 10/10/2023 3:41 PM EDT Body Mass Index 22.4 10/10/2023 3:41 PM EDT Plan of Treatment Upcoming Encounters Date Type Department Care Team (Late st Contact Info) Description 04/15/2024 4:30 PM EST Office Visit Adult Medicine [address] [id number] Lucie Montanez PA [address] [place] [address] Health Maintenance Due Date Last Done Comments Zoster Vaccines (1 of 2) 1976 Social Influencers of Health Screening 02/18/2022 COVID-19 Vaccine (3 - 2023-2 5 season) 2023 02/15/2021, 07/30/2020 Influenza Vaccine (#1) 2023 , 01/03/2019 Depression Screening 04/06/2024 04/06/2023 Falls Risk Assessment 04/06/2024 04/06/2023 Hypertension/CHF/CAD Annual BMP Blood Test 10/29/2024 10/30/2023, 10/30/2023 Breast Cancer Screening 06/18/2025 06/19/19 24, 04/29/2020, 01/08/2018 Cholesterol Screening (Lipid Panel) 02/24/2027 02/24/2022 RSV Immunization Patients 60 + Years Old (1 - 1-dose 75+ series) 2032 DTaP,Tdap,and Td Vaccines (4 - Td or Tdap) 10/05/2032 10/05/2022, 06/25/2012, 10/30/2003 Osteoporosis Screening (Bone Density Screening) 06/18/2033 06/19/2023 Colorectal Cancer Screening: Colonoscopy 11/13/2033 11/14/2023 Hepatitis C Screening Completed 07/24/2012 Pneumococcal Vaccine: 65+ Years Completed 04/06/2023, 06/05/2013 HIB Vaccines Aged Out No longer eligi ble based on patient's age to complete this topic HPV Vaccines Aged Out No longer eligi ble based on patient's age to complete this topic Hepatitis A Vaccines Aged Out No long er eligible based on patient's age to complete this topic Hepatitis B Vaccines Aged Out No long er eligible based on patient's age to complete this topic IPV Vaccines Aged Out No longer eligi ble based on patient's age to complete this topic MMR Vaccines Aged Out No longer eligi ble based on patient's age to complete this topic Meningococcal ACWY Vaccine Aged Out N o longer eligible based on patient's age to complete this topic RSV Immunization Patients Under 20 months Aged Out No longer eligible b ased on patient's age to complete this topic Varicella Vaccines Aged Out No longer eligible based on patient's age to complete this topic Procedures Procedure Name Priority Date/Time Associated Diagnosis Comments POC RAPID STREP A, MOLECULAR Routine 03/17/2024 9:44 AM EST Sore throat POC RAPID [id number], MOLECULAR Routine 03/17/2024 9:44 AM EST Sore throat COLONOSCOPY Routine 11/14/2023 ANNUAL BMP BLOOD TEST Routine 10/30/2023 DXA BONE DENSITY STUDY 1+ SITS AXIAL SKEL Routine 06/19/2023 1:57 PM EDT Encounter for screening for osteoporosis SCREENING MAMMOGRAPHY BI 2-VIEW BREAST INC CAD Routine 06/19/2023 1:36 PM EDT Encounter for screening mammogram for malignant neoplasm of breast DEPRESSION SCREENING Routine 04/06/2023 FALLS RISK ASSESSMENT Routine 04/06/2023 LIPID PANEL Routine 02/24/2022 HEPATITIS C SCREENING Routine 07/24/2012 from Last 3 Months or Most Recently Relevant to Health Maintenance Results * POC RAPID STREP A, Molecular (03/17/2024 9:44 AM EST) POC Strep A ID Now Negative Negative Internal Control Pass Yes Yes Swab Structure of anterior portion of neck / Unknown 03/17/2024 9:44 AM EST William BASHIR POINT OF CARE TEST E NTER/EDIT ORDERABLES * Poc Rapid [id number], MOLECULAR (03/17/2024 9:44 AM EST) COVID-19/SARS- COV-2 Rapid POC Negative Negative Internal Control Pass Yes Yes Swab Nasopharyngeal structure / Unknown 03/17/2024 9:44 AM EST William BASHIR POINT OF CARE TEST E NTER/EDIT ORDERABLES * Colonoscopy (11/14/2023) Colonoscopy Abstracted, Positive Anatomical Region Laterality Modality Other Historical Provider [facility] * Annual BMP Blood Test (10/30/2023) Annual BMP Blood Test Abstracted Historical Provider [facility] * DXA BONE DENSITY STUDY 1+ SITS AXIAL SKEL (06/19/2023 1:57 PM EDT) Anatomical Region Laterality Modality Bone Densitometr y 04/06/2023 9:55 AM EST Narrative 06/19/2023 6:27 PM EDT Clinical history: other(see comments) Scans of the lumbar spine and hips were performed on a [employer] fan beam bone densitometer. ? Bone mineral density measurements and associated T and Z scores respectively are as follows: Lumbar Spine: L1-L4 BMD: 0.996 g/cm2 ? T-Score: -0.5 ? Z-Score: 1.4 Left Proximal Femur: Neck BMD: 0.630 g/cm2 ? T-Score: -2.0 ?? Z-Score: -0.4 Total BMD: 0.763 g/cm2 ? T-Score: -1.5 ?Z-Score: -0.2 Compared with standards for the young adult, lowest measured bone density places the patient in the W.H.O. osteopenic range. FRAX 10 year probability of major osteoporotic fracture: 11% FRAX 10 year probability of hip fracture: 1.6% Population: [place] () IMPRESSION: IMPRESSION: Osteopenia. The NOF guidelines recommend that FDA approved medical therapies be considered in postmenopausal women and men age >50 years with a: i. Hip or vertebral (clinical or morphometric) fracture ii. T score of < -2.5 at the spine or hip iii. 10 year fracture probability by FRAX of >3% for hip fracture, or >20% for major osteoporotic fracture PLEASE NOTE: ?? W.H.O. classification is based on lowest measured density at the spine, femoral neck, or total hip.This classification has prognostic significance when applied to post menopausal women and older men. 1) ??The World Health Organization defines low BMD as follows: ?T-score ? Normal ? at or > -1 Osteopenia ? < -1 and ??> - 2.5 Osteoporosis ? at or < -2.5 without fractures Established osteoporosis ? < -2.5 with fractures Procedure Note Randee Black MD - 10/29/2023 Clinical history: other(see comments) Scans of the lumbar spine and hips were performed on a [employer] beam bone densitometer. Bone mineral density measurements and associated T and Z scoresrespectively are as follows: Lumbar Spine: L1-L4 BMD: 0.996 g/cm2 T-Score: -0.5 Z-Score: 1.4 Left Proximal Femur: Neck BMD: 0.630 g/cm2 T-Score: -2.0 Z-Score: -0.4 Total BMD: 0.763 g/cm2 T-Score: -1.5 Z-Score: -0.2 Compared with standards for the young adult, lowest measured bone densityplaces the patient in the W.H.O. osteopenic range. FRAX 10 year probability of major osteoporotic fracture: 11% FRAX 10 year probability of hip fracture: 1.6% Population: [place] () IMPRESSION: IMPRESSION: Osteopenia. The NOF guidelines recommend that FDA approved medical therapies beconsidered in postmenopausal women and men age >50 years with a: i. Hip or vertebral (clinical or morphometric) fracture ii. T score of < -2.5 at the spine or hip iii. 10 year fracture probability by FRAX of >3% for hip fracture, or >20%for major osteoporotic fracture PLEASE NOTE: W.H.O. classification is based on lowest measured density at the spine,femoral neck, or total hip.This classification has prognostic significance when applied to postmenopausal women and older men. 1) The World Health Organization defines low BMD as follows: T-score Normal at or > -1 Osteopenia < -1 and > -2.5 Osteoporosis at or < -2.5 withoutfractures Established osteoporosis < -2.5 with fractures Carlitos Conner MD IMG DXA PROCEDURES * SCREENING MAMMOGRAPHY BI 2-VIEW BREAST INC CAD (06/19/2023 1:36 PM EDT) Anatomical Region Laterality Modality Radiographic Hayde ging 05/19/2022 9:42 AM EST Narrative 06/20/2023 12:35 PM EDT This is a summary report. The complete report is available in the patient's medical record. If you cannot access the medical record, please contact the sending organization for a detailed fax or copy. Full field digital screening tomosynthesis mammography, reviewed with CAD and compared to previous. The breasts are composed of fatty and fibroglandular tissue. ??No suspicious mass, architectural distortion or suspicious calcifications are identified. IMPRESSION: : No mammographic evidence of malignancy. BIRADS 1-Negative; N. 5 year breast cancer risk assessment 1.8 % Lifetime breast cancer risk assessment 6.6 % Breast cancer risk category Low (<15%) Procedure Note Ermias Whitlock MD - 10/29/2023 This is a summary report. The complete report is available in thepatient's medical record. If you cannot access the medical record, pleasecontact the sending organization for a detailed fax or copy. Full field digital screening tomosynthesis mammography, reviewed with CADand compared to previous. The breasts are composed of fatty andfibroglandular tissue. No suspicious mass, architectural distortion orsuspicious calcifications are identified. IMPRESSION: : No mammographic evidence of malignancy. BIRADS 1-Negative; N. 5 year breast cancer risk assessment 1.8 % Lifetime breast cancer risk assessment 6.6 % Breast cancer risk category Low (<15%) Carlitos Conner MD IMG XR P ROCEDURES * Falls Risk Assessment (04/06/2023) [facility] Falls Risk Assessment Abstracted Historical Provider MD PAMELA Gao * Depression Screening (04/06/2023) [facility] Depression Screening Abstracted Historical Provider MD PAMELA LYNN E * Lipid panel (02/24/2022) [facility] LDL/HDL Ratio 3 0 - 4 Triglycerides 86 0 - 150 mg/dL Cholesterol 157 0 - 200 mg/dL HDL 60 40 mg/dL LDL Cholesterol 80 0 - 100 mg/dL Blood Venous blood specimen / Unknown Historical Provider LAB BLOOD ORDERAB LES * Hepatitis C Screening (07/24/2012) [facility] Hepatitis C Screening Abstracted Historical Provider MD PAMELA Gao from Last 3 Months or Most Recently Relevant to Health Maintenance Care Teams Electronic Integrated Systems Mechanic Relationship Specialty Start Date End Date Carlitos Conner MD [address] [place] [id number] PCP - General 05/01/22
== END 2024-04-02 08:43 | disposition home or self-care (01) ==
LOC: HO.HOSX 08:42
DX: M79.642 Pain in left hand (principal); S62.621B Displaced fracture of middle phalanx of left index finger, initial encounter for open fracture; M79.5 Residual foreign body in soft tissue; Z98.890 Other specified postprocedural states
CPT/HCPCS: 73130; 99212

== ENCOUNTER 2024-04-02 09:26 | Outpatient (AMB) | payer OTHER, SELFPAY ==
[2024-04-02 09:30] VITALS: BMI 21.6
--- NOTE | 2024-04-02 09:30 | MHC.OFFVIS ---
Vital Signs 04/02/24 09:30 Height 5 ft 7 in Weight 138 lb BMI 21.6 Intake Visit Reasons: PO-LT IF I&D/nail bed repair 02/28/24 AR Intake Note: Pt presents to the office today for a PO LT IF I&D/nail bed repair 02/28/24. Pt states she is feeling well and denies any numbness or tingling in her hand or fingers. Pt states her ROM is improving. Allergies acetaminophen [From Percocet] Adverse Reaction (Verified 04/02/24 09:30) Itching hydrochlorothiazide Adverse Reaction (Verified 04/02/24 09:30) Insomnia oxycodone [From Percocet] Adverse Reaction (Verified 04/02/24 09:30) Itching HPI HPI PO-LT IF I&D/nail bed repair 02/28/24 AR: Details: Pt presents to the office today for a PO LT IF I&D/nail bed repair 02/28/24. Pt states she is feeling well and denies any numbness or tingling in her hand or fingers. Pt states her ROM is improving. Patient does state she has some concern for redness or the surgery site, but that this has been largely unchanged over the last 2-3 weeks. Denies any pain in the incision site. 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 Neuro: Normal sensation of the tip of index finger of the left hand at this time Normal sensation of the tips of all other digits Vascular: Cap refill brisk Pain: No pain to palpation tip of the left index finger No other pain ROM: Patient is able make a closed fist and extend all digits of the left fully Skin: Surgical site noted on the tip of the left index finger No discharge at this time General: There is noted to be some redness distal aspect of the left index finger Very dark red, more consistent with hyperemia No ecchymosis drainage, or other evidence of infection There is good capillary refill to the tip of the left index finger Psych: Appears grossly normal Affect normal Attitude cooperative Results Reviewed Results Reviewed: X-rays obtained in the office today and independently reviewed by me, Erick Fall PA-C, demonstrate displaced fracture of the distal of the index finger with evidence of improved alignment interval bony healing. No evidence of osteo myelitis. Assessment & Plan Assessment & Plan (1) Injury of nail bed of finger of left hand: Comment: IF Code(s): S69.92XA - Unspecified injury of left wrist, hand and finger(s), initial encounter Category: Medical (2) Open fracture of distal phalanx of left index finger: Code(s): S62.631B - Displaced fracture of distal phalanx of left index finger, initial encounter for open fracture Category: Medical Plan 1 injury of nail bed and open fracture of left index finger status post I and D DOS 02/28/24 Patient appears to be recovering well postoperatively Patient is educated about the typical recovery course Due to persistent redness around the surgery site, of an abundance of caution the patient was prescribed a one-week course of antibiotics Patient was advised that if she sees any signs or symptoms of worsening infection, she should call our office or present to the emergency department if it was over the weekend Patient was amenable to this plan Patient will follow-up in 1 weeks for reassessment, sooner with any acute concerns Orders: Orders XR hand LT min 3V Today M79.642 - Pain in left hand Medications: New amoxicillin-pot clavulanate 875-125 mg 1 tab PO BID 14 tabs 0RF 7 days Coding Level of Care Code Global (69141) Diagnoses Injury of nail bed of finger of left hand S69.92XA Open fracture of distal phalanx of left index finger S62.631B
--- OUTSIDE RECORDS SUMMARY | 2024-04-02 09:58 | XMS_ITS | Clinical Summary ---
Author Organization [address] [place] [address] [place] [phone] Phone Care Team Providers Care Heel Boom Operator Name Role Phone Carlitos Conner MD Primary [...] hernia repair with mesh and gastropexy at [facility] by Dr.Laki Walters. She has been tolerating [...] AM EST Office Visit [facility] - [place] [address] [place] [address] William Castle PA Sore throat (Primary Dx) 01/29/2024 Telephone Gastroenterology - [place] [address] [facility] [address] [place] [address] Jet Mcclendon PA from Last [...] LIGATION PROCEDURE: HISTORICAL TUBAL LIGATION OOPHORECTOMY PROCEDURE: WY OOPHORECTOMY PARTIAL/TOTAL UNI/BI; COMMENT: LSO SECTION PROCEDURE: HISTORICAL DELIVERY; COMMENT: x3 ROBOTIC ASSISTED HYSTERECTOMY 08/13/19 14 PROCEDURE: HISTORICAL ROBOTIC HYSTERECTOMY WITH OR WITHOUT BSO; COMMENT: RSO COLONOSCOPY 04/06/19 16 PROCEDURE: HISTORICAL COLONOSCOPY; COMMENT: adenoma; repeat in 3 yrs ESOPHAGOGASTRODUODENOSCOPY 04/06/19 16 PROCEDURE: WY ESOPHAGOGASTRODUODENOSCOPY TRANSORAL DIAGNOSTIC; COMMENT: normal BREAST BIOPSY PROCEDURE: BX BREAST; PERC NEEDLE CORE W/IMAG GUID; COMMENT: BX 2011 RT SIDE NEG FINE NEEDLE ASPIRATION Left PROCEDURE: FINE NDLE ASPRTN W/IMAGING GUIDANCE; COMMENT: 2015 cyst asp. WISDOM TOOTH EXTRACTION PROCEDURE: HISTORICAL WISDOM TEETH EXTRACTION TONSILLECTOMY ADENOIDECTOMY, BILATERAL MYRINGOTOMY AND TUBES PROCEDURE: WY TONSILLECTOMY & ADENOIDECTOMY <AGE 14 OTHER SURGICAL HISTORY 08/22/19 24 PROCEDURE: WY LAPS RPR PARAESPHGL HRNA INCL FUNDPLSTY W/MESH [...] 4:30 PM EST Office Visit Adult Medicine [address] [phone] Lucie Montanez PA [address] [place] [address] Health Maintenance Due Date Last Done Comments [...] 9:44 AM EST Sore throat POC RAPID [id number], MOLECULAR Routine 03/17/2024 9:44 AM EST Sore [...] TEST E NTER/EDIT ORDERABLES * Poc Rapid [id number], MOLECULAR (03/17/2024 9:44 AM EST) COVID-19/SARS- COV-2 Rapid POC Negative Negative Internal Control Pass Yes Yes Swab Nasopharyngeal structure / Unknown 03/17/2024 9:44 AM EST William BASHIR POINT OF CARE TEST E NTER/EDIT ORDERABLES * Colonoscopy (11/14/2023) Colonoscopy Abstracted, Positive Anatomical Region Laterality Modality Other Historical Provider [facility] * Annual BMP Blood Test (10/30/2023) Annual BMP Blood Test Abstracted Historical Provider [facility] * DXA BONE DENSITY STUDY 1+ SITS AXIAL SKEL (06/19/2023 1:57 PM EDT) Anatomical Region Laterality Modality Bone Densitometr y 04/06/2023 9:55 AM EST Narrative 06/19/2023 6:27 PM EDT Clinical history: other(see comments) Scans of the lumbar spine and hips were performed on a [employer] fan beam bone densitometer. ? Bone mineral [...] spine and hips were performed on a [employer] beam bone densitometer. Bone mineral density measurements [...] P ROCEDURES * Falls Risk Assessment (04/06/2023) [facility] Falls Risk Assessment Abstracted Historical Provider MD PAMELA Gao * Depression Screening (04/06/2023) [facility] Depression Screening Abstracted Historical Provider MD PAMELA LYNN E * Lipid panel (02/24/2022) [facility] LDL/HDL Ratio 3 0 - 4 Triglycerides 86 0 - 150 mg/dL Cholesterol 157 0 - 200 mg/dL HDL 60 40 mg/dL LDL Cholesterol 80 0 - 100 mg/dL Blood Venous blood specimen / Unknown Historical Provider LAB BLOOD ORDERAB LES * Hepatitis C Screening (07/24/2012) [facility] Hepatitis C Screening Abstracted Historical Provider MD PAMELA Gao from Last 3 Months or Most Recently Relevant to Health Maintenance Care Teams Heel Boom Operator Relationship Specialty Start Date End Date Carlitos Conner MD [address] [place] [phone] PCP - General 05/01/22
--- OUTSIDE RECORDS SUMMARY | 2024-04-02 09:58 | XMS_ITS | Encounter Summary ---
Author Organization [facility] Address [address] [place] [address] Care Team Providers Care Equipment Monitor Phototypesetting Name Role Phone Carlitos Conner MD Primary Care Pr ovider Reason for Visit * Reason Comments Sore Throat Cough Encounter Details Date Type Department Care Team (Late st Contact Info) Description 03/17/2024 9:00 AM EST Office Visit Walk-[facility] Clinic [facility] [address] [place] [address] William Castle PA [address] [place] [phone] Sore throat (Primary Dx) Social History Tobacco [...] is a 68 y.o. old female. [address] [facility] HPI: Ansley Jackson presents [...] visit: 1. Sore throat - Poc Rapid [id number], MOLECULAR - POC RAPID STREP A, Molecular Will treat with Magic mouthwash. No evidence of colonization of Streptococcus. No other evidence ofbacterial infection. Orders Placed This Encounter Procedures Poc Rapid [id number], MOLECULAR POC RAPID STREP A, Molecular PAST [...] repeat in 3 yrs ESOPHAGOGASTRODUODENOSCOPY 04/06/2015 PROCEDURE: PA ESOPHAGOGASTRODUODENOSCOPY TRANSORAL DIAGNOSTIC; COMMENT: normal FINE NEEDLE ASPIRATION Left PROCEDURE: FINE NDLE ASPRTN W/IMAGING GUIDANCE; COMMENT: 2015 cyst asp. OOPHORECTOMY PROCEDURE: PA OOPHORECTOMY PARTIAL/TOTAL UNI/BI; COMMENT: LSO OTHER SURGICAL HISTORY 08/22/2023 PROCEDURE: PA LAPS RPR PARAESPHGL HRNA INCL FUNDPLSTY W/MESH ROBOTIC ASSISTED HYSTERECTOMY 08/12/2013 PROCEDURE: HISTORICAL ROBOTIC HYSTERECTOMY WITH OR WITHOUT BSO; COMMENT: RSO TONSILLECTOMY ADENOIDECTOMY, BILATERAL MYRINGOTOMY AND TUBES PROCEDURE: PA TONSILLECTOMY & ADENOIDECTOMY <AGE 14 TUBAL LIGATION [...] 4:30 PM EST Office Visit Adult Medicine [address] [phone] Lucie Montanez PA [address] [place] [phone] documented as of this encounter Procedures Procedure Name Priority Date/Time Associated Diagnosis Comments POC RAPID STREP A, MOLECULAR Routine 03/17/2024 9:44 AM EST Sore throat POC RAPID [id number], MOLECULAR Routine 03/17/2024 9:44 AM EST Sore throat documented in this encounter Results * POC RAPID STREP A, Molecular (03/17/2024 9:44 AM EST) POC Strep A ID Now Negative Negative Internal Control Pass Yes Yes Swab Structure of anterior portion of neck / Unknown 03/17/2024 9:44 AM EST William BASHIR POINT OF CARE TEST E NTER/EDIT ORDERABLES * Poc Rapid [id number], MOLECULAR (03/17/2024 9:44 AM EST) COVID-19/SARS- COV-2 Rapid POC Negative Negative Internal Control Pass Yes Yes Swab Nasopharyngeal structure / Unknown 03/17/2024 9:44 AM EST William BASHIR POINT OF CARE TEST E NTER/EDIT ORDERABLES documented in this encounter Visit Diagnoses Diagnosis Sore throat- Primary Acute pharyngitis documented in this encounter Care Teams Equipment Monitor Phototypesetting Relationship Specialty Start Date End Date Carlitos Conner MD [address] [place] [id number] PCP - General 05/01/22 documented as of this encounter
== END 2024-04-02 09:58 | disposition home or self-care (01) ==
PROVIDERS: PCP Family Medicine
DX: S69.92XA Unspecified injury of left wrist, hand and finger(s), initial encounter (principal); S62.631B Displaced fracture of distal phalanx of left index finger, initial encounter for open fracture
CPT/HCPCS: 99024

== ENCOUNTER 2024-04-09 14:03 | Outpatient (AMB) | payer OTHER, SELFPAY ==
--- NOTE | 2024-04-09 14:07 | A.OFFVIS_ITS ---
Intake Visit Reasons: PO-LT wound check IF I&D/nail bed repair Intake Note: Ansley is a 68 year old right hand dominant female who presents today post operatively for a wound check s/p left index finger I&D of open fracture, left index finger removal of nail plate and left index finger repair of nail bed DOS: 02/28/24 w/ Dr Wilson. Patient reports she is having little to no pain. She has noticed that the tip of her finger is a bit hard. Allergies acetaminophen [From Percocet] Adverse Reaction (Verified 04/09/24 14:10) Itching hydrochlorothiazide Adverse Reaction (Verified 04/09/24 14:10) Insomnia oxycodone [From Percocet] Adverse Reaction (Verified 04/09/24 14:10) Itching HPI HPI PO-LT wound check IF I&D/nail bed repair: Details: Ansley is a 68 year old right hand dominant female who presents today post operatively for a wound check s/p left index finger I&D of open fracture, left index finger removal of nail plate and left index finger repair of nail bed DOS: 02/28/24 w/ Dr Wilson. Patient reports she is having little to no pain. She has noticed that the tip of her finger is a bit hard. 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 Neuro: Normal sensation of the tip of index finger of the left hand at this time Normal sensation of the tips of all other digits Vascular: Cap refill brisk Pain: No pain to palpation tip of the left index finger No other pain ROM: Patient is able make a closed fist and extend all digits of the left fully Skin: Surgical site noted on the tip of the left index finger Incisions well healed No discharge at this time General: Hyperemia appears to be resolving No ecchymosis drainage, or other evidence of infection There is good capillary refill to the tip of the left index finger Psych: Appears grossly normal Affect normal Attitude cooperative Results Reviewed Results Reviewed: X-rays obtained in the office today and independently reviewed by me, Erick limon PA-C, demonstrate displaced fracture of the distal of the index finger with evidence of improved alignment interval bony healing. No evidence of osteo myelitis. Assessment & Plan Assessment & Plan (1) Injury of nail bed of finger of left hand: Comment: IF Code(s): S69.92XA - Unspecified injury of left wrist, hand and finger(s), initial encounter Category: Medical (2) Open fracture of distal phalanx of left index finger: Code(s): S62.631B - Displaced fracture of distal phalanx of left index finger, initial encounter for open fracture Category: Medical Plan 1 injury of nail bed and open fracture of left index finger status post I and D DOS 02/28/24 Patient appears to be recovering well postoperatively Patient is educated about the typical recovery course No further antibiotics necessary Patient was educated that she should still avoid submerging the hand, but that otherwise she does appear to be recovering very well Patient was amenable to this Patient will follow-up in 3-4 weeks for reassessment, sooner with any acute concerns Coding Level of Care Code Global (66759) Diagnoses Injury of nail bed of finger of left hand S69.92XA Open fracture of distal phalanx of left index finger S62.631B
--- OUTSIDE RECORDS SUMMARY | 2024-04-09 16:23 | XMS_ITS | Encounter Summary ---
Author Organization [facility] Address [address] [place] [address] Care Team Providers Care Flush Tester Name Role Phone Carlitos Conner MD Primary Care Pr ovider Reason for Visit * Reason Comments Sore Throat Cough Encounter Details Date Type Department Care Team (Late st Contact Info) Description 03/17/2024 9:00 AM EST Office Visit Walk-In Clinic [facility] [address] [place] [address] William Castle PA [address] [place] [phone] Sore throat (Primary Dx) Social History Tobacco [...] is a 68 y.o. old female. [address] [facility] HPI: Ansley Jackson presents to [...] visit: 1. Sore throat - Poc Rapid [id number], MOLECULAR - POC RAPID STREP A, Molecular Will treat with Magic mouthwash. No evidence of colonization of Streptococcus. No other evidence ofbacterial infection. Orders Placed This Encounter Procedures Poc Rapid [id number], MOLECULAR POC RAPID STREP A, Molecular PAST [...] repeat in 3 yrs ESOPHAGOGASTRODUODENOSCOPY 04/06/2015 PROCEDURE: HI ESOPHAGOGASTRODUODENOSCOPY TRANSORAL DIAGNOSTIC; COMMENT: normal FINE NEEDLE ASPIRATION Left PROCEDURE: FINE NDLE ASPRTN W/IMAGING GUIDANCE; COMMENT: 2015 cyst asp. OOPHORECTOMY PROCEDURE: HI OOPHORECTOMY PARTIAL/TOTAL UNI/BI; COMMENT: LSO OTHER SURGICAL HISTORY 08/22/2023 PROCEDURE: HI LAPS RPR PARAESPHGL HRNA INCL FUNDPLSTY W/MESH ROBOTIC ASSISTED HYSTERECTOMY 08/12/2013 PROCEDURE: HISTORICAL ROBOTIC HYSTERECTOMY WITH OR WITHOUT BSO; COMMENT: RSO TONSILLECTOMY ADENOIDECTOMY, BILATERAL MYRINGOTOMY AND TUBES PROCEDURE: HI TONSILLECTOMY & ADENOIDECTOMY <AGE 14 TUBAL LIGATION [...] 4:30 PM EST Office Visit Adult Medicine [address] [address] Lucie Montanez PA [address] [place] [phone] documented as of this encounter Procedures Procedure Name Priority Date/Time Associated Diagnosis Comments POC RAPID STREP A, MOLECULAR Routine 03/17/2024 9:44 AM EST Sore throat POC RAPID [id number], MOLECULAR Routine 03/17/2024 9:44 AM EST Sore throat documented in this encounter Results * POC RAPID STREP A, Molecular (03/17/2024 9:44 AM EST) POC Strep A ID Now Negative Negative Internal Control Pass Yes Yes Swab Structure of anterior portion of neck / Unknown 03/17/2024 9:44 AM EST William BASHIR POINT OF CARE TEST E NTER/EDIT ORDERABLES * Poc Rapid [id number], MOLECULAR (03/17/2024 9:44 AM EST) COVID-19/SARS- COV-2 Rapid POC Negative Negative Internal Control Pass Yes Yes Swab Nasopharyngeal structure / Unknown 03/17/2024 9:44 AM EST William BASHIR POINT OF CARE TEST E NTER/EDIT ORDERABLES documented in this encounter Visit Diagnoses Diagnosis Sore throat- Primary Acute pharyngitis documented in this encounter Care Teams Flush Tester Relationship Specialty Start Date End Date Carlitos Conner MD [address] [place] [phone] PCP - General 05/01/22 documented as of this encounter
--- OUTSIDE RECORDS SUMMARY | 2024-04-09 16:23 | XMS_ITS | Clinical Summary ---
Author Organization [address] [place] [address] [place] [phone] Phone Care Team Providers Care Manager Marketing Communication Name Role Phone Carlitos Conner MD Primary [...] hernia repair with mesh and gastropexy at [facility] by Dr.Laki Walters. She has been tolerating [...] AM EST Office Visit [facility] [place] [address] [place] [address] William Castle PA Sore throat (Primary Dx) 01/29/2024 Telephone Gastroenterology - [place] [address] [facility] [address] [place] [address] Jet Mcclendon PA from Last [...] 4:30 PM EST Office Visit Adult Medicine [address] [phone] Lucie Montanez PA [address] [place] [address] Health Maintenance Due Date Last Done Comments [...] 9:44 AM EST Sore throat POC RAPID [id number], MOLECULAR Routine 03/17/2024 9:44 AM EST Sore [...] TEST E NTER/EDIT ORDERABLES * Poc Rapid [id number], MOLECULAR (03/17/2024 9:44 AM EST) COVID-19/SARS- COV-2 Rapid POC Negative Negative Internal Control Pass Yes Yes Swab Nasopharyngeal structure / Unknown 03/17/2024 9:44 AM EST William BASHIR POINT OF CARE TEST E NTER/EDIT ORDERABLES * Colonoscopy (11/14/2023) Colonoscopy Abstracted, Positive Anatomical Region Laterality Modality Other Historical Provider [facility] E * Annual BMP Blood Test (10/30/2023) Annual BMP Blood Test Abstracted Historical Provider [facility] E * DXA BONE DENSITY STUDY 1+ SITS AXIAL SKEL (06/19/2023 1:57 PM EDT) Anatomical Region Laterality Modality Bone Densitometr y 04/06/2023 9:55 AM EST Narrative 06/19/2023 6:27 PM EDT Clinical history: other(see comments) Scans of the lumbar spine and hips were performed on a [employer] fan beam bone densitometer. ? Bone mineral [...] spine and hips were performed on a [employer] beam bone densitometer. Bone mineral density measurements [...] P ROCEDURES * Falls Risk Assessment (04/06/2023) [facility] Falls Risk Assessment Abstracted Historical Provider MD PAMELA Gao * Depression Screening (04/06/2023) [facility] Depression Screening Abstracted Historical Provider MD PAMELA LYNN E * Lipid panel (02/24/2022) [facility] LDL/HDL Ratio 3 0 - 4 Triglycerides 86 0 - 150 mg/dL Cholesterol 157 0 - 200 mg/dL HDL 60 40 mg/dL LDL Cholesterol 80 0 - 100 mg/dL Blood Venous blood specimen / Unknown Historical Provider LAB BLOOD ORDERAB LES * Hepatitis C Screening (07/24/2012) [facility] Hepatitis C Screening Abstracted Historical Provider MD PAMELA Gao from Last 3 Months or Most Recently Relevant to Health Maintenance Care Teams Manager Marketing Communication Relationship Specialty Start Date End Date Carlitos Conner MD [address] [place] [phone] PCP - General 05/01/22
== END 2024-04-09 14:44 | disposition home or self-care (01) ==
PROVIDERS: PCP Family Medicine
CPT/HCPCS: 99024

== ENCOUNTER → 2024-04-09 14:03 | Outpatient (BNVA) | payer OTHER, SELFPAY | PROVIDERS: PCP Family Medicine | DX: S69.92XD Unspecified injury of left wrist, hand and finger(s), subsequent encounter (principal); S62.631D Displaced fracture of distal phalanx of left index finger, subsequent encounter for fracture with routine healing | CPT/HCPCS: 99212 ==

== ENCOUNTER 2024-05-07 13:49 | Outpatient (AMB) | payer OTHER, SELFPAY ==
[2024-05-07 13:50] VITALS: BMI 21.6
--- NOTE | 2024-05-07 13:50 | MHC.OFFVIS ---
Vital Signs 05/07/24 13:50 Height 5 ft 7 in Weight 138 lb BMI 21.6 Intake Visit Reasons: PO-LT IF I&D/nail bed repair 02/28/24 w/xray Intake Note: Ansley is a 68 year old right hand dominant female who presents today post operatively for a wound check s/p left index finger I&D of open fracture, left index finger removal of nail plate and left index finger repair of nail bed DOS: 02/28/24 w/ Dr Wilson. At her last visit she was instructed to continue avoiding underwater activities. Patient reports that she is doing well, she has some strange sensation of the finger, the finger is also hard. Allergies acetaminophen [From Percocet] Adverse Reaction (Verified 05/07/24 13:53) Itching hydrochlorothiazide Adverse Reaction (Verified 05/07/24 13:53) Insomnia oxycodone [From Percocet] Adverse Reaction (Verified 05/07/24 13:53) Itching HPI HPI PO-LT IF I&D/nail bed repair 02/28/24 w/xray: Details: Ansley is a 68 year old right hand dominant female who presents today post operatively for a wound check s/p left index finger I&D of open fracture, left index finger removal of nail plate and left index finger repair of nail bed DOS: 02/28/24 w/ Dr Wilson. At her last visit she was instructed to continue avoiding underwater activities. Patient reports that she is doing well, she has some strange sensation of the finger, the finger is also hard. 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 Neuro: Normal sensation of the tip of index finger of the left hand at this time Normal sensation of the tips of all other digits Vascular: Cap refill brisk Pain: No pain to palpation tip of the left index finger No other pain ROM: Patient is able make a closed fist and extend all digits of the left fully Skin: Surgical site noted on the tip of the left index finger well healed Incisions well healed No discharge at this time General: Hyperemia resolved No ecchymosis drainage, or other evidence of infection There is good capillary refill to the tip of the left index finger Psych: Appears grossly normal Affect normal Attitude cooperative Assessment & Plan Assessment & Plan (1) Injury of nail bed of finger of left hand: Comment: IF Code(s): S69.92XA - Unspecified injury of left wrist, hand and finger(s), initial encounter Category: Medical (2) Open fracture of distal phalanx of left index finger: Code(s): S62.631B - Displaced fracture of distal phalanx of left index finger, initial encounter for open fracture Category: Medical Plan 1 injury of nail bed and open fracture of left index finger status post I and D DOS 02/28/24 Patient appears to be recovering well postoperatively Patient is educated about the typical recovery course No further antibiotics necessary Patient is educated that she can return back to full normal activity as tolerated, as she appears to have recovered very well from injury and surgery Patient was amenable to this plan Patient will follow-up as needed with any acute concerns Coding Level of Care Code Global (22002) Diagnoses Injury of nail bed of finger of left hand S69.92XA Open fracture of distal phalanx of left index finger S62.631B
--- OUTSIDE RECORDS SUMMARY | 2024-05-07 16:59 | XMS_ITS | Encounter Summary ---
Author Organization [facility] Address [address] [place] [address] Care Team Providers Care Roll Or Tape Edge Machine Operator Name Role Phone Carlitos Conner MD Primary Care Pr ovider Encounter Details Date Type Department Care Team (Late st Contact Info) Description 05/01/2024 Telephone Adult Medicine [address] [phone] Alivia Roblero, [place] Social History Tobacco Use Types Packs/Day Years Used Date Smoking Tobacco: Former Cigarettes 1 24 0 03/12/1976 - 03/12/2000 Smokeless Tobacco: Never Alcohol Use Standard Drinks/Week Comments Yes 0 (1 standard drink = 0.6 oz pur e alcohol) Comments No Sex and Gender Information Value Date Recorded Sex Assigned at Not on file Legal Sex Female 8:31 AM EST Gender Identity Not on file Sexual Orientation Not on file documented as of this encounter Ordered Prescriptions Prescription Sig Dispense Quantity Refills Last Filled Start Date End Date amoxicillin (AMOXIL) 500 mg tabletIndications: H. pylori infection Take 2 tablets (1,000 mg total) by mouth 2 (two) times daily morning and afternoon for 14 days. 56 tablet 05/01/2024 5 omeprazole (PriLOSEC) [address] capsuleIndications :H. pylori infection Take 1 capsule (20 mg total) by mouth 2 (two) times a day for 14 days. 14 capsule 05/01/2024 5 clarithromycin (BIAXIN) 500 mg tabletIndications: H. pylori infection Take 1 tablet (500 mg total) by mouth 2 (two) times a day for 14 days. 28 tablet 05/01/2024 documented in this encounter Progress Notes * Natalie Haynes RN - 05/02/2024 8:41 AM EST Pharmacy confirmed receipt at 5:31 pharmacy is not open but I contacted pt AND LET HER KNOW TO CALLTHIS AM AND TO SEND A MESSAGE IF THIS WAS NOT RECEIVED * KRYSTEN Varghese - 05/01/2024 5:30 PM EST Prescriptions resent * Alivia Roblero RN - 05/01/2024 5:15 PM EST Called and spoke to a pharmacist. She states they did not receive the prescriptions for Clarithromycin or Omeprazole. documented in this encounter Plan of Treatment Upcoming Encounters Date Type Department Care Team (Late st Contact Info) Description 10/15/2024 9:45 AM EDT Office Visit Adult Medicine [address] [phone] Carlitos Conner MD [address] [place] [id number] documented as of this encounter Visit Diagnoses Diagnosis H. pylori infection Helicobacter pylori (H. pylori) documented in this encounter Discontinued Medications Medication Sig Discontinue Reason Start Date End Da te amoxicillin (AMOXIL) 500 mg tabletIndications:H. pylori infection Take 2 tablets (1,000 mg total) by mouth 2 (two) times daily morning and afternoon for 14 days. Reorder 04/30/2024 05/01/2024 clarithromycin (BIAXIN) 500 mg tabletIndications:H. pylori infection Take 1 tablet (500 mg total) by mouth 2 (two) times a day for 14 days. Reorder 04/30/2024 05/01/2024 omeprazole (PriLOSEC) [address] capsuleIndications:H. pylori infection Take 1 capsule (20 mg total) by mouth 2 (two) times a day for 14 days. Reorder 04/30/2024 05/01/2024 documented as of this encounter Additional Health Concerns Assessment Noted Time A fall risk assessment has been complete d for the patient 04/15/2024 3:56 PM EST documented as of this encounter Care Teams Roll Or Tape Edge Machine Operator Relationship Specialty Start Date End Date Carlitos Conner MD [address] [place] [id number] PCP - General 05/01/22 documented as of this encounter
--- OUTSIDE RECORDS SUMMARY | 2024-05-07 16:59 | XMS_ITS | Encounter Summary ---
Author Organization [facility] Address [address] [place] [address] Care Team Providers Care Dispenser Operator Name Role Phone Carlitos Conner MD Primary Care Pr ovider Reason for Visit * Reason Comments Annual Exam Encounter Details Date Type Department Care Team (Late st Contact Info) Description 04/15/2024 4:30 PM EST Office Visit Adult Medicine [address] [address] Lucie Montanez PA [address] [place] [address] Annual physical exam (Primary Dx); Need for prophylactic vaccination and inoculation against influenza; Primary hypertension; Prediabetes; Gastroesophageal reflux disease, unspecified whether esophagitis present; Belching; Anxiety and depression; Multiple thyroid nodules Social History Tobacco Use Types Packs/Day Years Used Date Smoking Tobacco: Former Cigarettes 1 24 0 03/12/1976 - 03/12/2000 Smokeless Tobacco: Never Tobacco Cessation:Counseling Given: Not Answered Alcohol Use Standard Drinks/Week Comments Yes 0 [...] Sign Reading Time Taken Comments Blood Pressure 128/58 04/15/2024 3:57 PM EST Pulse 78 04/15/2024 3:57 PM EST Temperature 35.8 ??C (96.4 ??F) 04/15/2024 3:57 PM ES T Respiratory Rate 15 04/15/2024 3:57 PM EST Oxygen Saturation - - Inhaled Oxygen Concentration - - Weight 64.4 kg (142 lb) 04/15/2024 3:57 PM EST Height 170.2 cm (5' 7 ) 04/15/2024 3:57 PM EST Body Mass Index 22.24 04/15/2024 3:57 PM EST documented in this encounter Ordered Prescriptions Prescription Sig Dispense Quantity Refills Last Filled Start Date End Date famotidine (PEPCID) 20 mg tablet Take 1 tablet (20 mg total) by mouth 2 (two) times a day if needed for heartburn. 180 tablet 1 04/15/2024 pantoprazole (PROTONIX) 20 mg EC tabletIndications:B elching Take 1 tablet (20 mg total) by mouth 1 (one) time each day before breakfast. Do not crush, chew, or split. 90 tablet 1 04/15/2024 documented in this encounter Progress Notes * KRYSTEN Varghese - 04/15/2024 4:30 PM EST Planning for H pylori breath test at the lab No pantoprazole for 14 days before test And no Pepcid for 48 hours before test * KRYSTEN Varghese - 04/15/2024 4:30 PM EST CHIEF COMPLAINT: Annual Exam IDENTIFIER:Ansley Jackson is a here today for evaluation of general medical health HPI: Ansley Jackson is here today for routine physical exam. Patient is due for flu shot, would like to complete today Hypertension-BP in office today 128/58, on amlodipine 10 mg daily, losartan 25 mg daily Prediabetes-last A1c 5.7% in March 2023 GERD-patient had paraesophageal hernia repair in August 2023. Patient states that since surgery, she has noted consistent belching and flatus. States that her belching has a foul odor as well as her stool/flatus. She denies any blood in stool or melena. Patient states that she gets associated abdominal cramping, but passing flatus does help. Patient states she has not been taking her pantoprazole consistently, using Pepcid as needed. She was also given simethicone from GI given the symptoms back in early fall, but symptoms persist Anxiety, depression-on Cymbalta 60 mg daily and trazodone 50 mg nightly with good effect Patient is a history of thyroid nodules, had FNA in June 2022, follows with endocrinology. Nodulesmostly benign on FNA but one of them showed atypia of undetermined significance, further genetic testing showed approximately 1% risk of malignancy per last PCP note. Patient states that she has noticed feeling tired, and feeling sensitive to hot and cold ROS: GENERAL: No malaise, significant weight loss or fever HEENT: No changes in hearing or vision, nose bleeds or other nasal problems NECK: No lumps, goiter, pain or significant neck swelling RESPIRATORY: No cough, wheezing or shortness of breath CARDIOVASCULAR: No chest pain, leg swelling or palpitations BREAST: no lumps, discharge, pain or change in skin GI: No abdominal discomfort, blood in stools or black stools : No dysuria, frequency or incontinence CITRIX CONSULTANT: No abnormal vaginal bleeding or abnormal vaginal discharge. MUSCULOSKELETAL: No joint pain or swelling, back pain, or muscle pain. SKIN: No lesions, rash or itching PSYCH: No sleep disturbance, mood disorder or recent psychosocial stressors. HEMATOLOGY/LYMPHOLOGY No prolonged bleeding, easy bruisability or swollen nodes ENDOCRINE: No cold or heat intolerance, polyuria, polydipsia or goiter. NEURO: No persistent headache, syncope, seizures, weakness or numbness PAST MEDICAL HISTORY: Patient Active Problem List Diagnosis Date Noted Dysphagia 02/11/2024 Multiple thyroid nodules 02/11/2024 Osteopenia 06/20/2023 Paraesophageal hernia with obstruction but no gangrene 06/14/2023 Prediabetes 04/06/2023 Schatzki's ring 05/19/2022 Chronic sinusitis 04/01/2020 Gastroesophageal reflux disease 07/04/2018 Anxiety and depression 06/23/2015 Colonic polyp 04/14/2015 Palpitations 03/08/2015 MEYERS (dyspnea on exertion) 07/16/2014 Lung nodules 07/03/2012 Compound nevus 06/03/2012 Multinodular goiter 03/26/2012 Hypertension 03/28/2010 IMMUNIZATIONS/INJECTIONS: Most Recent Immunizations Administered Date(s) Administered Influenza Quadravalent, MDCK, 0.5ml, preservative free (Flucelvax) 6mo and older 01/03/2019 Influenza trivalent, 0.5mL (Fluad) 65yo and older 04/15/2024 Influenza trivalent, 0.5mL, preservative free (Fluarix; FluLaval; Fluzone) ages 6mo and older (Afluria) 3 years and older 12/14/2019 [place] SARS-CoV-2 COVID-19, vector-nr, rS-Ad26, preservative free 07/30/2020 Moderna SARS-CoV-2 COVID-19, mRNA, LNP-S, preservative free 02/15/2021 Pneumococcal conjugate 20 valent (Prevnar 20, PCV 20) 2mo and older 04/06/2023 Pneumococcal polysaccharide 23 valent (Pneumovax 23) 2yo and older 06/05/2013 Td Tetanus diptheria (Tdvax) 7yo and older 10/30/2003 Tdap Tetanus diptheria acellular pertussis (Boostrix; Adacel) 7yo and older 10/05/2022 HEALTH MAINTENANCE: Health Maintenance Topic Date Due Zoster Vaccines (1 of 2) Never done Social Influencers of Health Screening Never done COVID-19 Vaccine (3 - 2023- season) 2023 Depression Screening 04/06/2024 Hypertension/CHF/CAD Annual BMP Blood Test 10/29/2024 Falls Risk Assessment 04/15/2025 Breast Cancer Screening 06/18/2025 Cholesterol Screening (Lipid Panel) 02/24/2027 RSV Immunization Patients 60+ Years Old (1 - 1-dose 75+ series) 2032 DTaP,Tdap,and Td Vaccines (4 - Td or Tdap) 10/05/2032 Osteoporosis Screening (Bone Density Screening) 06/18/2033 Colorectal Cancer Screening: Colonoscopy 11/13/2033 Influenza Vaccine Completed Pneumococcal Vaccine: 65+ Years Completed Hepatitis C Screening Completed HIB Vaccines Aged Out Hepatitis B Vaccines Aged Out IPV Vaccines Aged Out Hepatitis A Vaccines Aged Out MMR Vaccines Aged Out Varicella Vaccines Aged Out Meningococcal ACWY Vaccine Aged Out HPV Vaccines Aged Out RSV Immunization Patients Under 20 months Aged Out SOCIAL HISTORY: Social History Tobacco Use Smoking status: Former Current packs/day: 0.00 Average packs/day: 1 pack/day for 24.0 years (24.0 ttl pk-yrs) Types: Cigarettes Start date: 03/12/1976 Quit date: 03/12/2000 Years since quittin.1 Smokeless tobacco: Never Substance Use Topics Alcohol use: Yes FAMILY HISTORY: Family History Problem Relation Name Age of Onset Colon cancer Mother Thyroid disease Mother Heart attack Father Rhythm disturbance Other (Other: Skin Cancer) Father Other (Other: Skin Cancer) Sister basal cell, face Other (Other: Skin Cancer) Brother Basal cell, neck Hypertension Brother Breast cancer Neg Hx ACTIVE MEDICATIONS: Outpatient Medications Marked as Taking for the 04/15/24 encounter (Office Visit) with KRYSTEN Varghese Medication Sig Dispense Refill amLODIPine (NORVASC) 10 mg tablet Take 1 tablet (10 mg total) by mouth 1 (one) time each day. DULoxetine (CYMBALTA) [address] capsule TAKE ONE CAPSULE BY MOUTH EVERY DAY 90 capsule 1 famotidine (PEPCID) 20 mg tablet Take 1 tablet (20 mg total) by mouth 2 (two) times a day if neededfor heartburn. 180 tablet 1 fluticasone propionate (FLONASE) 50 mcg/actuation nasal spray Administer 2 sprays into each nostril1 (one) time each day. losartan (COZAAR) 25 mg tablet Take 1 tablet (25 mg total) by mouth 1 (one) time each day. pantoprazole (PROTONIX) 20 mg EC tablet Take 1 tablet (20 mg total) by mouth 1 (one) time each day before breakfast. Do not crush, chew, or split. 90 tablet 1 simethicone (MYLICON) 125 mg chewable tablet Chew 1 tablet (125 mg total) every 6 (six) hours if needed for flatulence. traZODone (DESYREL) 50 mg tablet Take 1 tablet (50 mg total) by mouth at bedtime. 90 tablet 1 [DISCONTINUED] famotidine (PEPCID) 20 mg tablet Take 1 tablet (20 mg total) by mouth 2 (two) times a day if needed for heartburn. [DISCONTINUED] pantoprazole (PROTONIX) 20 mg EC tablet TAKE ONE TABLET BY MOUTH TWICE A DAY BEFORE MEALS ON EMPTY STOMACH WAIT 30 MINUTES THEN EAT TO ACTIVATE MEDICATION ALLERGIES: Allergies Allergen Reactions Chlorthalidone Leg cramping Hydrochlorothiazide Other Palpitations & Anxiety Lisinopril Dry cough Oxycodone-Aspirin Itching PHYSICAL EXAM: Visit Vitals BP 128/58 Pulse 78 Temp 35.8 ??C (96.4 ??F) Resp 15 Ht 1.702 m (67 ) Wt 64.4 kg (142 lb) BMI 22.24 kg/m?? OB Status Postmenopausal Smoking Status Former BSA 1.75 m?? APPEARANCE: Alert and in no acute distress EYES: PERRLA, conjunctiva and sclera normal. EARS: External ears normal. Canals clear. TMs normal. THROAT: no erythema or exudates NECK: Neck supple, no adenopathy, thyroid symmetric and of normal size HEART: RRR with normal S1 and S2 LUNG: clear to auscultation BREAST (FEMALE): Deferred to cementing bulk material operator ABDOMEN: Bowel sounds normoactive, no bruits, soft, non-tender, without organomegaly or palpable masses CITRIX CONSULTANT (FEMALE): Deferred to cementing bulk material operator BACK: No pain to palpation with good flexion and extension EXTREMITIES: Extremities warm and well perfused without clubbing, cyanosis, or edema NEURO: Awake, alert and oriented x 3 SKIN: Skin color, texture, turgor normal LABS/IMAGING: Lab Results Component Value Date CHOL 157 02/24/2022 LDL 80 02/24/2022 HDL 60 02/24/2022 TRIG 86 02/24/2022 Lab Results Component Value Date HGBA1C 5.7 04/06/2023 IMPRESSION: 1. Annual physical exam 2. Need for prophylactic vaccination and inoculation against influenza 3. Primary hypertension 4. Prediabetes 5. Gastroesophageal reflux disease, unspecified whether esophagitis present 6. Belching 7. Anxiety and depression 8. Multiple thyroid nodules PLAN: 1. Health maintenance: The patient presented for an evaluation of general health. As part of this visit, we reviewed the following issues, which are considered an essential part of preventative health in this age group: - Breast cancer screening, which includes clinical exam and mammograms annually - mammogram up-to-date. May discontinue at age 70 at discretion of patient and provider. - Colon cancer screening (colonoscopy every 10 years/annual FOBT plus flexi sigmoidoscopy every 5 years/double-contrast BE every 5 years/Cologuard every 3 years/Annual FOBT) - up to date. May discontinue at age 80 at the discretion of patient and provider. - Cervical cancer testing every 1-5 years - May discontinued at age 65 at the discretion of the patient and provider. - Blood pressure annual screening performed - Cholesterol screening every five years - ordered - Osteoporosis prevention including calcium/vitamin D intake, weight bearing exercise & smokingcessation - Screening for Type 2 diabetes mellitus in those with hypertension and/or hyperlipidemia - Recommendations about immunizations - patient is due for Influenza immunization and is ordered for this - Recommendation of an eye exam for glaucoma every 2-4 years in this age range - patient will self-refer - Screening for substance abuse (including tobacco, alcohol, and recreational drugs) - see Substance & Sexuality section of medical record - In addition to reviewing these issues, I have reviewed the following sections of the chart: Social History and Social History - Did you have a dental visit in the last 12 months? Yes Hypertension-BP controlled, continue amlodipine and losartan Prediabetes-will repeat A1c for monitoring GERD-reports excessive belching with foul odor and flatus with abdominal cramping. Will check H. pylori test, patient took pantoprazole yesterday, discussed she needs to be off medication for 14 days Anxiety, depression-continue Cymbalta and trazodone Thyroid nodules-will check TSH Follow-up 6 months Patient verbalized understanding and is in agreement with plan ADDITIONAL ORDERS: Orders Placed This Encounter Procedures Influenza trivalent, 0.5mL (Fluad) 65yo and older Helicobacter pylori breath test Complete blood count Comprehensive metabolic panel Hemoglobin A1c Thyroid stimulating hormone with reflex to free t4 and free t3 Lipid panel with reflex to direct LDL Iron and TIBC Ferritin Vitamin D 25 hydroxy Vitamin B12 INFLUENZA TRIVALENT, 0.5ML (FLUAD) 65YO AND OLDER Today's documentation was made using voice recognition software.This note may contain grammatical errors secondary to this software. KRYSTEN Varghese on 04/15/2024 at 5:31 PM EST documented in this encounter Plan of Treatment Upcoming Encounters Date Type Department Care Team (Late st Contact Info) Description 10/15/2024 9:45 AM EDT Office Visit Adult [address] [phone] Carlitos Conner MD [address] [place] [id number] documented as of this encounter Results * Vitamin B12 (04/28/2024 9:42 AM EST) Vitamin B-12 406 250 - 900 pcg/mL LAB CHEMISTRY METHOD 04/28/2024 1:59 PM EST [facility] Blood Venous blood specimen / Unknown Venipuncture / Unknown 04/28/2024 9:42 AM EST 04/28/2024 9:42 AM EST Lucie BASHIR LAB BLOOD ORDERABLES Final Re sult Performing Organization Address [facility]/ZIP Co de Phone Number [facility] [address] [place] [address], * (ABNORMAL) Vitamin D 25 hydroxy (04/28/2024 9:42 AM EST) Vit D, 25-Hydroxy 26.8(L) 30.0 - 80.0 ng/mL LAB CHEMISTRY METHOD 04/28/2024 1:43 PM EST [facility] Blood Venous blood specimen / Unknown Venipuncture / Unknown 04/28/2024 9:42 AM EST 04/28/2024 9:42 AM EST Lucie BASHIR LAB BLOOD ORDERABLES Final Re sult [facility] [address] [place] [address], [place] [phone] * Ferritin (04/28/2024 9:42 AM EST) Ferritin 23 8 - 252 ng/mL LAB CHEMISTRY METHOD 04/28/2024 1:59 PM EST [facility] Blood Venous blood specimen / Unknown Venipuncture / Unknown 04/28/2024 9:42 AM EST 04/28/2024 9:42 AM EST Lucie BASHIR LAB BLOOD ORDERABLES Final Re sult [facility] [address] [place] [address], [place] [phone] * Iron and TIBC (04/28/2024 9:42 AM EST) Iron 79 40 - 150 mcg/dL LAB CHEMISTRY METHOD 04/28/2024 1:36 PM EST [facility] TIBC 422 250 - 450 mcg/dL LAB CHEMISTRY METHOD 04/28/2024 1:36 PM EST [facility] Iron Saturation 19 15 - 50 % LAB CHEMISTRY METHOD 04/28/2024 1:36 PM EST [facility] Blood Venous blood specimen / Unknown Venipuncture / Unknown 04/28/2024 9:42 AM EST 04/28/2024 9:42 AM EST Lucie BASHIR LAB BLOOD ORDERABLES Final Re sult [facility] [address] [place] [address], [place] [phone] * Lipid panel with reflex to direct LDL (04/28/2024 9:42 AM EST) Cholesterol 162 0 - 200 mg/dL LAB CHEMISTRY METHOD 04/28/2024 1:59 PM EST [facility] Triglycerides 85 0 - 150 mg/dL LAB CHEMISTRY METHOD 04/28/2024 1:59 PM EST [facility] HDL 55 >=40 mg/dL LAB CHEMISTRY METHOD 04/28/2024 1:59 PM EST [facility] LDL Calculated 90 0 - 100 mg/dL LAB CHEMISTRY METHOD 04/28/2024 1:59 PM EST [facility] VLDL Cholesterol Yoan 17 mg/dL LAB CHEMISTRY METHOD 04/28/2024 1:59 PM EST [facility] Non HDL Chol. (LDL+VLDL) 107 <145 mg/dL LAB CHEMISTRY METHOD 04/28/2024 1:59 PM [facility] Chol/HDL Ratio 2.9 0.0 - 4.4 LAB CHEMISTRY METHOD 04/28/2024 1:59 PM [facility] Blood Venous blood specimen / Unknown Venipuncture / Unknown 04/28/2024 9:42 AM EST 04/28/2024 9:42 AM EST Lucie BASHIR LAB BLOOD ORDERABLES Final Re sult Performing Organization Address [facility]/ZIP Co de Phone Number [facility] [address] [place] [address], [place] [phone] * Thyroid stimulating hormone with reflex to free t4 and free t3 (04/28/2024 9:42 AM EST) TSH 0.50 0.40 - 4.00 mcIU/mL LAB CHEMISTRY METHOD 04/28/2024 1:44 PM EST [facility] Blood Venous blood specimen / Unknown Venipuncture / Unknown 04/28/2024 9:42 AM EST 04/28/2024 9:42 AM EST us Lucie BASHIR LAB BLOOD ORDERABLES Final Re sult [facility] [address] [place] [address], [place] [phone] * Hemoglobin A1c (04/28/2024 9:42 AM EST) Hemoglobin A1C 5.6 <6.5 % LAB CHEMISTRY METHOD 04/28/2024 2:28 PM EST [facility] Mean Bld Glu Estim. 114 mg/dL LAB CHEMISTRY METHOD 04/28/2024 2:28 PM [facility] Blood Venous blood specimen / Unknown Venipuncture / Unknown 04/28/2024 9:42 AM EST 04/28/2024 9:42 AM EST us Lucie BASHIR LAB BLOOD ORDERABLES Final Re sult [facility] [address] [place] [address], [place] [phone] * (ABNORMAL) Comprehensive metabolic panel (04/28/2024 9:42 AM EST) Sodium 139 133 - 145 mmol/L LAB CHEMISTRY METHOD 04/28/2024 1:36 PM [facility] Potassium 4.4 3.5 - 5.5 mmol/L LAB CHEMISTRY METHOD 04/28/2024 1:36 PM [facility] Chloride 107 96 - 110 mmol/L LAB CHEMISTRY METHOD 04/28/2024 1:36 PM [facility] CO2 29 21 - 32 mmol/L LAB CHEMISTRY METHOD 04/28/2024 1:36 PM [facility] Anion Gap 3 3 - 11 LAB CHEMISTRY METHOD 04/28/2024 1:36 PM [facility] Glucose 93 70 - 100 mg/dL LAB CHEMISTRY METHOD 04/28/2024 1:36 PM [facility] BUN 12 5 - 25 mg/dL LAB CHEMISTRY METHOD 04/28/2024 1:36 PM [facility] Creatinine 0.95 0.50 - 1.10 mg/dL LAB CHEMISTRY METHOD 04/28/2024 1:36 PM [facility] eGFR 66 >=60 mL/min/1. 73m2 LAB CHEMISTRY METHOD 04/28/2024 1:36 PM [facility] Comment:Calculation based on the??Chronic Kidney Disease Epidemiology Collaboration (CKD-EPI) equation refit??without adjustment for race. BUN/Creatinine Ratio 12.6 LAB CHEMISTRY METHOD 04/28/2024 1:36 PM [facility] Calcium 9.8 8.5 - 10.5 mg/dL LAB CHEMISTRY METHOD 04/28/2024 1:36 PM [facility] AST (SGOT) 14 10 - 42 unit/L LAB CHEMISTRY METHOD 04/28/2024 1:36 PM [facility] ALT (SGPT) 22 10 - 60 unit/L LAB CHEMISTRY METHOD 04/28/2024 1:36 PM [facility] Alkaline Phosphatase 125(H) 42 - 121 unit/L LAB CHEMISTRY METHOD 04/28/2024 1:36 PM [facility] Total Protein 7.1 6.0 - 8.0 g/dL LAB CHEMISTRY METHOD 04/28/2024 1:36 PM [facility] Albumin 3.9 3.2 - 5.0 g/dL LAB CHEMISTRY METHOD 04/28/2024 1:36 PM [facility] Total Bilirubin 0.6 0.0 - 1.4 mg/dL LAB CHEMISTRY METHOD 04/28/2024 1:36 PM [facility] Blood Venous blood specimen / Unknown Venipuncture / Unknown 04/28/2024 9:42 AM EST 04/28/2024 9:42 AM EST us Lucie BASHIR LAB BLOOD ORDERABLES Final Re sult [facility] [address] [place] [address], * (ABNORMAL) Complete blood count (04/28/2024 9:42 AM EST) WBC 6.0 4.8 - 10.8 K/mcL LAB HEMETOLOGY METHOD 04/28/2024 12:40 PM [facility] RBC 5.00(H) 3.80 - 4.80 M/mcL LAB HEMETOLOGY METHOD 04/28/2024 12:40 PM [facility] Hemoglobin 14.3 11.5 - 16.0 g/dL LAB HEMETOLOGY METHOD 04/28/2024 12:40 PM [facility] Hematocrit 44.4 35.0 - 47.0 % LAB HEMETOLOGY METHOD 04/28/2024 12:40 PM [facility] MCV 89.7 79.0 - 98.0 FL LAB HEMETOLOGY METHOD 04/28/2024 12:40 PM [facility] MCH 28.9 27.0 - 32.0 pcg LAB HEMETOLOGY METHOD 04/28/2024 12:40 PM [facility] MCHC 32.2 32.0 - 37.0 g/dL LAB HEMETOLOGY METHOD 04/28/2024 12:40 PM [facility] RDW 13.2 11.0 - 15.0 % LAB HEMETOLOGY METHOD 04/28/2024 12:40 PM [facility] Platelets 256 130 - 400 K/mcL LAB HEMETOLOGY METHOD 04/28/2024 12:40 PM [facility] MPV 12.3(H) 7.0 - 11.0 FL LAB HEMETOLOGY METHOD 04/28/2024 12:40 PM [facility] NRBC 0.0 <1.0 % LAB HEMETOLOGY METHOD 04/28/2024 12:40 PM [facility] NRBC Absolute 0.00 <0.10 K/mcL LAB HEMETOLOGY METHOD 04/28/2024 12:40 PM [facility] Blood Venous blood specimen / Unknown Venipuncture / Unknown 04/28/2024 9:42 AM EST 04/28/2024 9:42 AM EST us Lucie BASHIR LAB BLOOD ORDERABLES Final Re sult Performing Organization Address [facility]/ZIP Co de Phone Number [facility] [address] [place] [address], [place] [phone] * (ABNORMAL) Helicobacter pylori breath test (04/28/2024 9:42 AM EST) H Pylori Breath Test Positive( A) Negative LAB CHEMISTRY METHOD 04/28/2024 1:02 PM EST [facility] Breath Oral cavity structure / Unknown Non-blood Collection / Unknown 04/28/2024 9:42 AM EST 04/28/2024 9:42 AM EST us Lucie BASHIR LAB BODY FLUIDS AND STOOLS OR DERABLES Final Result Performing Organization Address [facility]/ZIP Co de Phone Number [facility] [address] [place] [address], [place] [phone] documented in this encounter Visit Diagnoses Diagnosis Annual physical exam- Primary Routine general medical examination at a health care facility Need for prophylactic vaccination and inoculation against influenza Primary hypertension Unspecified essential hypertension Prediabetes Other abnormal glucose Gastroesophageal reflux disease, unspecified whether esophagitis present Belching Flatulence, eructation, and gas pain Anxiety and depression Multiple thyroid nodules Nontoxic multinodular goiter documented in this encounter Discontinued Medications Medication Sig Discontinue Reason Start Date End Da te bisacodyL (DULCOLAX) 5 mg EC tablet Take 2 tabs by mouth right before beginning bowel prep. Follow instructions given by office for timing. Therapy completed 10/31/2023 04/15/2024 diphenhydrAMINE 12.5 mg/5 mL elixir 50 mg, aluminum-magnesium hydroxide-simethicone 400-400-40 mg/5 mL suspension 20 mL, lidocaine 2 % solution 20 mLIndications:Sore throat Swish and spit 5 mL every 4 (four) hours if needed for mucositis. Therapy completed 03/17/2024 04/15/2024 pantoprazole (PROTONIX) 20 mg EC tablet TAKE ONE TABLET BY MOUTH TWICE A DAY BEFORE MEALS ON EMPTY STOMACH WAIT 30 MINUTES THEN EAT TO ACTIVATE MEDICATION Reorder 12/17/2023 04/15/2024 famotidine (PEPCID) 20 mg tablet Take 1 tablet (20 mg total) by mouth 2 (two) times a day if needed for heartburn. Reorder 05/17/2023 04/15/2024 documented as of this encounter Orders Immunization/Injection Count Last Ordered Date First Ordered Date INFLUENZA TRIVALENT, 0.5ML ( FLUAD) 65YO AND OLDER 1 04/15/2024 documented in this encounter Additional Health Concerns Assessment Noted Time A fall risk assessment has been complete d for the patient 04/15/2024 3:56 PM EST documented as of this encounter Care Teams Dispenser Operator Relationship Specialty Start Date End Date Carlitos Conner MD [address] [place] [id number] PCP - General 05/01/22 documented as of this encounter
--- OUTSIDE RECORDS SUMMARY | 2024-05-07 16:59 | XMS_ITS | Encounter Summary ---
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 pylori infection Take 1 capsule (20 mg total) by mouth 2 (two) times a day for 14 days. 14 capsule 04/30/2024 02/20/202 5 clarithromycin (BIAXIN) 500 mg tabletIndications: H. pylori infection Take 1 tablet (500 mg total) by mouth 2 (two) times a day for 14 days. 28 tablet 04/30/2024 5 amoxicillin (AMOXIL) 500 mg tabletIndications: H. pylori infection Take 2 tablets (1,000 mg total) by mouth 2 (two) times daily morning and afternoon for 14 days. 56 tablet 04/30/2024 5 documented in this encounter Progress Notes * Alivia Roblero RN - 04/30/2024 4:15 PM EST Called pt and informed her per Lucie Montanez; Please inform patient that her H Pylori breath test was positive, I have sent over treatment (amoxicillin, clarithromycin and omeprazole) to be taken for 14 days. She will need to return to the lab for a repeat breath test 1 month after she completesthe treatment (order has been placed) *she will be taking omeprazole for treatment of H Pylori, she should hold her pantoprazole while taking the omeprazole and for 2 weeks before her repeat testing Her vitamin D level was slightly low, I would recommend an over the counter vitamin D of 2000 unitsdaily Her thyroid testing was in normal range She saw Dr Jaramillo last year, would recommend follow-up for monitoring of thyroid nodule history The remainder of her lab work was in stable and acceptable range She is in agreement with this plan. * KRYSTEN Varghese - 04/30/2024 3:46 PM EST Please inform patient that her H Pylori breath test was positive, I have sent over treatment (amoxicillin, clarithromycin and omeprazole) to be taken for 14 days. She will need to return to the lab for a repeat breath test 1 month after she completes the treatment (order has been placed) *she will be taking omeprazole for treatment of H Pylori, she should hold her pantoprazole while taking the omeprazole and for 2 weeks before her repeat testing Her vitamin D level was slightly low, I would recommend an over the counter vitamin D of 2000 unitsdaily Her thyroid testing was in normal range She saw Dr Rana last year, would recommend follow-up for monitoring of thyroid nodule history The remainder of her lab work was in stable and acceptable range * Jean Marie Khanna - 04/30/2024 10:48 AM EST Patient had labs done on 04/28/24 , please advise per lab results , states that she would like to get treatment started as soon as possible documented in this encounter Plan of Treatment Upcoming Encounters Date Type Department Care Team (Late st Contact Info) Description 10/15/2024 9:45 AM EDT Office Visit Adult Medicine [facility] [address] [place] [phone] Carlitos Conner MD [address] [place] [phone] Scheduled Orders Name Type Priority Associated Diagnoses Orde r Schedule Helicobacter pylori breath test Lab Routine H. pylori infection Expected: 06/12/2024, Expires: 08/28/2024 documented as of this encounter Visit Diagnoses Diagnosis H. pylori infection- Primary Helicobacter pylori (H. pylori) documented in this encounter Additional Health Concerns Assessment Noted Time A fall risk assessment has been complete d for the patient 04/15/2024 3:56 PM EST documented as of this encounter Care Teams Broom[employer] Press Feeder Relationship Specialty Start Date End Date Carlitos Conner MD [address] [place] [phone] PCP - General 05/01/22 documented as of this encounter
--- OUTSIDE RECORDS SUMMARY | 2024-05-07 16:59 | XMS_ITS | Clinical Summary ---
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 4 Active losartan (COZAAR) 25 mg tablet Take 1 tablet (25 mg total) by mouth 1 (one) time each day. 4 Active amLODIPine (NORVASC) 10 mg tablet Take 1 tablet (10 mg total) by mouth 1 (one) time each day. 4 Active fluticasone propionate (FLONASE) 50 mcg/actuation nasal spray Administer 2 sprays into each nostril 1 (one) time each day. 3 Active DULoxetine (CYMBALTA) [address] capsule TAKE ONE CAPSULE BY MOUTH EVERY DAY 90 capsule 1 4 Active traZODone (DESYREL) 50 mg tablet Take 1 tablet (50 mg total) by mouth at bedtime. 90 tablet 1 4 Active pantoprazole (PROTONIX) 20 mg EC tabletIndicati ons:Belching Take 1 tablet (20 mg total) by mouth 1 (one) time each day before breakfast. Do not crush, chew, or split. 90 tablet 1 5 Active famotidine (PEPCID) 20 mg tablet Take 1 tablet (20 mg total) by mouth 2 (two) times a day if needed for heartburn. 180 tablet 1 5 Active clarithromycin (BIAXIN) 500 mg tabletIndicati ons:H. pylori infection Take 1 tablet (500 mg total) by mouth 2 (two) times a day for 14 days. 28 tablet 5 025 Active omeprazole (PriLOSEC) [address] capsuleIndicat ions:H. pylori infection Take 1 capsule (20 mg total) by mouth 2 (two) times a day for 14 days. 14 capsule 5 025 Active amoxicillin (AMOXIL) 500 mg tabletIndicati ons:H. pylori infection Take 2 tablets (1,000 mg total) by mouth 2 (two) times daily morning and afternoon for 14 days. 56 tablet 5 025 Active pantoprazole (PROTONIX) 20 mg EC tablet TAKE ONE TABLET BY MOUTH TWICE A DAY BEFORE MEALS ON EMPTY STOMACH WAIT 30 MINUTES THEN EAT TO ACTIVATE MEDICATION 4 025 Discontin ued(Reord er) bisacodyL (DULCOLAX) 5 mg EC tablet Take 2 tabs by mouth right before beginning bowel prep. Follow instructions given by office for timing. 4 025 Discontin ued(Thera py completed ) famotidine (PEPCID) 20 mg tablet Take 1 tablet (20 mg total) by mouth 2 (two) times a day if needed for heartburn. 4 025 Discontin ued(Reord er) diphenhydrAMIN E 12.5 mg/5 mL elixir 50 mg, aluminum-magne sium hydroxide-addison thicone 400-400-40 mg/5 mL suspension 20 mL, lidocaine 2 % solution 20 mLIndications: Sore throat Swish and spit 5 mL every 4 (four) hours if needed for mucositis. 140 each 5 025 Discontin ued(Thera py completed ) amoxicillin (AMOXIL) 500 mg tabletIndicati ons:H. pylori infection Take 2 tablets (1,000 mg total) by mouth 2 (two) times daily morning and afternoon for 14 days. 56 tablet 5 025 Discontin ued(Reord er) clarithromycin (BIAXIN) 500 mg tabletIndicati ons:H. pylori infection Take 1 tablet (500 mg total) by mouth 2 (two) times a day for 14 days. 28 tablet 5 025 Discontin ued(Reord er) omeprazole (PriLOSEC) [address] capsuleIndicat ions:H. pylori infection Take 1 capsule (20 mg total) by mouth 2 (two) times a day for 14 days. 14 capsule 5 025 Discontin ued(Reord er) Active Problems Problem Noted Date Diagnosed Date [...] gastropexy at [facility] by Dr.Laki Walters. 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 Multinodular goiter 03/26/2012 Overview (02/11/2024): FNA 05/22 -RL nodule 'atypical' rpt FNA 10/22 Benign, 01/25 benign results Hypertension 03/28/2010 Encounters Date Type Department Care Team Description 05/01/2024 Telephone Adult Medicine [address] [phone] Alivia Roblero RN 04/30/2024 Telephone Adult Medicine [address] [phone] Carlitos Conner MD Lab Results 04/15/2024 4:30 PM EST Office Visit Adult Medicine [address] [phone] Lucie Montanez PA Annual physical exam (Primary Dx); Need for prophylactic vaccination and inoculation against influenza; Primary hypertension; Prediabetes; Gastroesophageal reflux disease, unspecified whether esophagitis present; Belching; Anxiety and depression; Multiple thyroid nodules 03/17/2024 9:00 AM EST Office Visit [facility] [address] [phone] William Castle PA Sore throat (Primary Dx) from Last 3 Months Immunizations Name Administration Dates Next Due Influenza Quadravalent, MDCK , 0.5ml, preservative free (Flucelvax) 6mo and older 01/03/2019 Influenza trivalent, 0.5mL (Fluad) 65yo and olde r 04/15/2024 Influenza trivalent, 0.5mL, preservative free (Fluarix; [...] LIGATION PROCEDURE: HISTORICAL TUBAL LIGATION OOPHORECTOMY PROCEDURE: AK OOPHORECTOMY PARTIAL/TOTAL UNI/BI; COMMENT: LSO SECTION PROCEDURE: HISTORICAL DELIVERY; COMMENT: x3 ROBOTIC ASSISTED HYSTERECTOMY 08/13/19 14 PROCEDURE: HISTORICAL ROBOTIC HYSTERECTOMY WITH OR WITHOUT BSO; COMMENT: RSO COLONOSCOPY 04/06/19 16 PROCEDURE: HISTORICAL COLONOSCOPY; COMMENT: adenoma; repeat in 3 yrs ESOPHAGOGASTRODUODENOSCOPY 04/06/19 16 PROCEDURE: AK ESOPHAGOGASTRODUODENOSCOPY TRANSORAL DIAGNOSTIC; COMMENT: normal BREAST BIOPSY PROCEDURE: BX BREAST; PERC NEEDLE CORE W/IMAG GUID; COMMENT: BX 2011 RT SIDE NEG FINE NEEDLE ASPIRATION Left PROCEDURE: FINE NDLE ASPRTN W/IMAGING GUIDANCE; COMMENT: 2016 cyst asp. WISDOM TOOTH EXTRACTION PROCEDURE: HISTORICAL WISDOM TEETH EXTRACTION TONSILLECTOMY ADENOIDECTOMY, BILATERAL MYRINGOTOMY AND TUBES PROCEDURE: AK TONSILLECTOMY & ADENOIDECTOMY <AGE 14 OTHER SURGICAL HISTORY 08/22/19 24 PROCEDURE: AK LAPS RPR PARAESPHGL HRNA INCL FUNDPLSTY W/MESH [...] 2 Father Mother (Age 82) 01/16 OF [place]omenic [place] Sister Social History Tobacco Use Types Packs/Day [...] on file Sexual Orientation Not on file Obstetrics History Last Filed Vital Signs Vital Sign Reading Time Taken Comments Blood Pressure 128/58 04/15/2024 3:57 PM EST Pulse 78 04/15/2024 3:57 PM EST Temperature 35.8 ??C (96.4 ??F) 04/15/2024 3:57 PM ES T Respiratory Rate 15 04/15/2024 3:57 PM EST Oxygen Saturation 99% 03/17/2024 9:06 AM EST Inhaled Oxygen Concentration - - Weight 64.4 kg (142 lb) 04/15/2024 3:57 PM EST Height 170.2 cm (5' 7 ) 04/15/2024 3:57 PM EST Body Mass Index 22.24 04/15/2024 3:57 PM EST Plan of Treatment Upcoming Encounters Date Type Department Care Team (Late st Contact Info) Description 10/15/2024 9:45 AM EDT Office Visit Adult Medicine [facility] [address] [place] [phone] Carlitos Conner MD [address] [place] [phone] Health Maintenance Due Date Last Done Comments Zoster Vaccines (1 of 2) 1976 Social Influencers of Health Screening 02/18/2022 COVID-19 Vaccine (3 - 2023-2 5 season) 2023 02/15/2021, 07/30/2020 Depression Screening 04/06/2024 04/06/2023 Falls Risk Assessment 04/15/2025 04/15/2024 , 04/06/2023 Hypertension/CHF/CAD Annual BMP Blood Test 04/28/2025 04/28/2024, 10/30/2023, 10/30/2023 Breast Cancer Screening 06/18/2025 06/19/19 24, 04/29/2020, 01/08/2018 Cholesterol Screening (Lipid Panel) 04/28/2029 04/28/2024, 02/24/2022 RSV Immunization Patients 60 + Years Old (1 - 1-dose 75+ series) 2032 DTaP,Tdap,and Td Vaccines (4 - Td or Tdap) 10/05/2032 10/05/2022, 06/25/2012, 10/30/2003 Osteoporosis Screening (Bone Density Screening) 06/18/2033 06/19/2023 Colorectal Cancer Screening: Colonoscopy 11/13/2033 11/14/2023 Hepatitis C Screening Completed 07/24/2012 Pneumococcal Vaccine: 50+ Years Completed 04/06/2023, 06/05/2013 Influenza Vaccine Completed 04/15/2024, 12/14/2019, 01/03/2019 HIB Vaccines Aged Out No longer eligi [...] patient's age to complete this topic Meningococcal B Vacine Aged Out No lo nger eligible based on patient's age to complete this topic RSV Immunization Patients Under 20 months Aged Out No longer eligible b ased on patient's age to complete this topic Varicella Vaccines Aged Out No longer eligible based on patient's age to complete this topic Procedures Procedure Name Priority Date/Time Associated Diagnosis Comments HELICOBACTER PYLORI BREATH TEST Routine 04/28/2024 9:42 AM EST Belching COMPLETE BLOOD COUNT Routine 04/28/2024 9:42 AM EST Annual physical exam COMPREHENSIVE METABOLIC PANEL Routine 04/28/2024 9:42 AM EST Annual physical exam HEMOGLOBIN A1C Routine 04/28/2024 9:42 AM EST Annual physical exam THYROID STIMULATING HORMONE WITH REFLEX TO FREE T4 AND FREE T3 Routine 04/28/2024 9:42 AM EST Annual physical exam LIPID PANEL WITH REFLEX TO DIRECT LDL Routine 04/28/2024 9:42 AM EST Annual physical exam FERRITIN Routine 04/28/2024 9:42 AM EST Annual physical exam IRON AND TIBC Routine 04/28/2024 9:42 AM EST Annual physical exam VITAMIN D 25 HYDROXY Routine 04/28/2024 9:42 AM EST Annual physical exam VITAMIN B12 Routine 04/28/2024 9:42 AM EST Annual physical exam POC RAPID STREP A, MOLECULAR Routine 03/17/2024 9:44 AM EST Sore throat POC RAPID [id number], MOLECULAR Routine 03/17/2024 9:44 AM EST Sore throat COLONOSCOPY Routine 11/14/2023 DXA BONE DENSITY STUDY 1+ SITS AXIAL SKEL Routine 06/19/2023 1:57 PM EDT Encounter for screening for osteoporosis SCREENING MAMMOGRAPHY BI 2-VIEW BREAST INC CAD Routine 06/19/2023 1:36 PM EDT Encounter for screening mammogram for malignant neoplasm of breast DEPRESSION SCREENING Routine 04/06/2023 FALLS RISK ASSESSMENT Routine 04/06/2023 HEPATITIS C SCREENING Routine 07/24/2012 from Last 3 Months or Most Recently Relevant to Health Maintenance Results * Thyroid stimulating hormone with reflex to free t4 and free t3 (04/28/2024 9:42 AM EST) TSH 0.50 0.40 - 4.00 mcIU/mL LAB CHEMISTRY METHOD 04/28/2024 1:44 PM EST [facility] Blood Venous blood specimen / Unknown Venipuncture / Unknown 04/28/2024 9:42 AM EST 04/28/2024 9:42 AM EST us Lucie BASHIR LAB BLOOD ORDERABLES Final Re sult [facility] [address] [place] [address], [place] [phone] * Lipid panel with reflex to direct LDL (04/28/2024 9:42 AM EST) Cholesterol 162 0 - 200 mg/dL LAB CHEMISTRY METHOD 04/28/2024 1:59 PM EST [facility] Triglycerides 85 0 - 150 mg/dL LAB CHEMISTRY METHOD 04/28/2024 1:59 PM EST [facility] HDL 55 >=40 mg/dL LAB CHEMISTRY METHOD 04/28/2024 1:59 PM EST [facility] LDL Calculated 90 0 - 100 mg/dL LAB CHEMISTRY METHOD 04/28/2024 1:59 PM EST [facility] VLDL Cholesterol Yoan 17 mg/dL LAB CHEMISTRY METHOD 04/28/2024 1:59 PM EST [facility] Non HDL Chol. (LDL+VLDL) 107 <145 mg/dL LAB CHEMISTRY METHOD 04/28/2024 1:59 PM EST [facility] Chol/HDL Ratio 2.9 0.0 - 4.4 LAB CHEMISTRY METHOD 04/28/2024 1:59 PM EST [facility] Blood Venous blood specimen / Unknown Venipuncture / Unknown 04/28/2024 9:42 AM EST 04/28/2024 9:42 AM EST us Lucie BASHIR LAB BLOOD ORDERABLES Final Re sult [facility] [address] [place] [address], [place] [phone] * Iron and TIBC (04/28/2024 9:42 AM EST) Iron 79 40 - 150 mcg/dL LAB CHEMISTRY METHOD 04/28/2024 1:36 PM EST [facility] TIBC 422 250 - 450 mcg/dL LAB CHEMISTRY METHOD 04/28/2024 1:36 PM [facility] Iron Saturation 19 15 - 50 % LAB CHEMISTRY METHOD 04/28/2024 1:36 PM [facility] Blood Venous blood specimen / Unknown Venipuncture / Unknown 04/28/2024 9:42 AM EST 04/28/2024 9:42 AM EST us Lucie BASHIR LAB BLOOD ORDERABLES Final Re sult [facility] [address] [place] [address], [place] [phone] * (ABNORMAL) Helicobacter pylori breath test (04/28/2024 9:42 AM EST) Pathologist [facility] H Pylori Breath Test Positive( A) Negative LAB CHEMISTRY METHOD 04/28/2024 1:02 PM [facility] Breath Oral cavity structure / Unknown Non-blood Collection / Unknown 04/28/2024 9:42 AM EST 04/28/2024 9:42 AM EST us Lucie BASHIR LAB BODY FLUIDS AND STOOLS OR DERABLES Final Result [facility] [address] [place] [address], [place] [phone] * (ABNORMAL) Vitamin D 25 hydroxy (04/28/2024 9:42 AM EST) Vit D, 25-Hydroxy 26.8(L) 30.0 - 80.0 ng/mL LAB CHEMISTRY METHOD 04/28/2024 1:43 PM [facility] Blood Venous blood specimen / Unknown Venipuncture / Unknown 04/28/2024 9:42 AM EST 04/28/2024 9:42 AM EST us Lucie BASHIR LAB BLOOD ORDERABLES Final Re sult [facility] [address] [place] [address], [place] [phone] * (ABNORMAL) Complete blood count (04/28/2024 9:42 AM EST) [facility] [address] WBC 6.0 4.8 - 10.8 K/mcL LAB [...] [place] LAB HEMETOLOGY METHOD 04/28/2024 12:40 PM EST [facility] NRBC 0.0 <1.0 % LAB HEMETOLOGY METHOD 04/28/2024 12:40 PM EST [facility] NRBC Absolute 0.00 <0.10 K/mcL LAB HEMETOLOGY METHOD 04/28/2024 12:40 PM EST [facility] Blood Venous blood specimen / Unknown Venipuncture / Unknown 04/28/2024 9:42 AM EST 04/28/2024 9:42 AM EST us Lucie BASHIR LAB BLOOD ORDERABLES Final Re sult [facility] [address] [place] [address], [place] [phone] * Hemoglobin A1c (04/28/2024 9:42 AM EST) Hemoglobin A1C 5.6 <6.5 % LAB CHEMISTRY METHOD 04/28/2024 2:28 PM EST [facility] Mean Bld Glu Estim. 114 mg/dL LAB CHEMISTRY METHOD 04/28/2024 2:28 PM EST [facility] Blood Venous blood specimen / Unknown Venipuncture / Unknown 04/28/2024 9:42 AM EST 04/28/2024 9:42 AM EST us Lucie BASHIR LAB BLOOD ORDERABLES Final Re sult [facility] [address] [place] [address], [place] [phone] * Ferritin (04/28/2024 9:42 AM EST) Ferritin 23 8 - 252 ng/mL LAB CHEMISTRY METHOD 04/28/2024 1:59 PM EST [facility] Blood Venous blood specimen / Unknown Venipuncture / Unknown 04/28/2024 9:42 AM EST 04/28/2024 9:42 AM EST Lucie BASHIR LAB BLOOD ORDERABLES Final Re sult Performing Organization Address City/[facility]/ZIP Co de Phone Number [facility] [address] [place] [address], [place] [phone] * Vitamin B12 (04/28/2024 9:42 AM EST) [facility] [address] Vitamin B-12 406 250 - 900 pcg/mL LAB CHEMISTRY METHOD 04/28/2024 1:59 PM [facility] Blood Venous blood specimen / Unknown Venipuncture / Unknown 04/28/2024 9:42 AM EST 04/28/2024 9:42 AM EST Lucie BASHIR LAB BLOOD ORDERABLES Final Re sult Performing Organization Address City/[facility]/ZIP Co de Phone Number [facility] [address] [place] [address], [place] [phone] * (ABNORMAL) Comprehensive metabolic panel (04/28/2024 9:42 AM EST) [facility] [address] Sodium 139 133 - 145 mmol/L LAB [...] BASHIR LAB BLOOD ORDERABLES Final Re sult [facility] [address] [place] [address], * POC RAPID STREP A, Molecular (03/17/2024 9:44 AM EST) POC Strep A ID Now Negative Negative Internal Control Pass Yes Yes Swab Structure of anterior portion of neck / Unknown 03/17/2024 9:44 AM EST William BASHIR POINT OF CARE TEST ENTER/EDIT OR DERABLES Final Result * Poc Rapid [id number], MOLECULAR (03/17/2024 9:44 AM EST) COVID-19/SARS- COV-2 Rapid POC Negative Negative Internal Control Pass Yes Yes Swab Nasopharyngeal structure / Unknown 03/17/2024 9:44 AM EST William BASHIR POINT OF CARE TEST ENTER/EDIT OR DERABLES Final Result * Colonoscopy (11/14/2023) Pathologist [facility] Colonoscopy Abstracted, Positive Anatomical Region Laterality Modality Other Historical Provider HEALTH MAINTENANCE Final Result * DXA BONE DENSITY STUDY 1+ SITS AXIAL SKEL (06/19/2023 1:57 PM EDT) Anatomical Region Laterality Modality Bone Densitometr y 04/06/2023 9:55 AM EST Narrative 06/19/2023 6:27 PM EDT Clinical history: other(see comments) Scans of the lumbar spine and hips were performed on a [employer] fan beam bone densitometer. ? Bone mineral [...] spine and hips were performed on a [employer] beam bone densitometer. Bone mineral density measurements [...] withoutfractures Established osteoporosis < -2.5 with fractures us Carlitos Conner MD IMG DXA PROCEDUR ES Final Result * SCREENING MAMMOGRAPHY BI 2-VIEW BREAST INC [...] % Breast cancer risk category Low (<15%) Result [facility] Carlitos Conner MD IMG XR PROCEDURE S Final Result * Falls Risk Assessment (04/06/2023) [facility] [address] Falls Risk Assessment Abstracted Result [facility] Provider HEALTH MAINTENANCE Final Result * Depression Screening (04/06/2023) Pathologist [facility] Depression Screening Abstracted Result [facility] Provider HEALTH MAINTENANCE Final Result * Hepatitis C Screening (07/24/2012) [facility] Hepatitis C Screening Abstracted Result [facility] Provider HEALTH MAINTENANCE Final Result from Last 3 Months or Most Recently Relevant to Health Maintenance Insurance MEDICARE [facility] Care Teams Heavy Lift Rigger Relationship Specialty Start Date End Date Carlitos Conner MD [address] [place] [phone] PCP - General 05/01/22
== END 2024-05-07 14:12 | disposition home or self-care (01) ==
PROVIDERS: PCP Family Medicine
DX: S69.92XA Unspecified injury of left wrist, hand and finger(s), initial encounter (principal); S62.631B Displaced fracture of distal phalanx of left index finger, initial encounter for open fracture
CPT/HCPCS: 99024

== ENCOUNTER → 2024-05-07 13:49 | Outpatient (BNVA) | payer OTHER, SELFPAY | PROVIDERS: PCP Family Medicine | DX: S69.92XD Unspecified injury of left wrist, hand and finger(s), subsequent encounter (principal); S62.631D Displaced fracture of distal phalanx of left index finger, subsequent encounter for fracture with routine healing | CPT/HCPCS: 99212 ==